=== PATIENT | female | born 1980 | race Caucasian/White ===

== ENCOUNTER 2016-08-18 15:03 | Emergency (ER) | payer SELFPAY ==
[2016-08-18 15:28] VITALS: BP 119/90
--- NOTE | 2016-08-18 17:56 | EDM.PDOC ---
ED HPI Trauma - General Chief Complaint: Lower Extremity Injury/Pain Stated Complaint: R FOOT INJURY Time Seen by Provider: 08/18/16 16:23 Source: Reports: Patient History Limitations: Reports: No limitations - History of Present Illness INITIAL COMMENTS - FREE TEXT/NARRATIVE: Patient is a 35-year-old female presents ED complaining of right foot pain. States approximately 3 days ago while taking the trash out she stepped on the curb wrong and felt a popping sensation to the lateral aspect of the foot. States she has continued to walk with gradual worsening pain over the past three days. States she has noticed mild swelling and bruising to the top of her foot. Has take ibuprofen and tylenol with minimal relief. She denies any pain to ankle/lower leg, or knee. Occurred When: other (3 days ago) Occurred Where: home Method of Injury: other Severity: moderate Pain/Injury Location: Reports: other ( right foot) Associated Symptoms: Reports: trouble walking (Right foot pain) Allergies/ADRs: Allergies No Known Allergies Allergy (Verified 08/18/16 15:28) Home Medications: Ambulatory Orders Acetaminophen/HYDROcodone [[place] 325-5 MG] 1 tab PO Q6H PRN #10 tablet 08/18/16 Past Medical History - Past Health History Medical/Surgical History: Denies Medical/Surgical History - Past Surgical History Female Surgical History: Reports: Hysterectomy, Salpingo-oophorectomy Social & Family History - Tobacco Use Smoking Status *Q: Current Every Day Smoker Years of Tobacco use: 15 Packs/Tins Daily: 0.1 Used Tobacco, but Quit: Yes Month Tobacco Last Used: February 2016 - Caffeine Use Caffeine Use: Reports: Coffee - Recreational Drug Use Recreational Drug Use: No - Living Situation & Occupation Living situation: Reports: , with family (4 kids) 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[employer]) Review of Systems - Review of Systems Review Of Systems: See Below Musculoskeletal: Reports: foot pain (Right), other (No ankle, lower leg, knee discomfort) Skin: Reports: other (Mild ecchymosis to the dorsal aspect right foot) Neurological: Reports: Difficulty Walking (Secondary right foot pain) Trauma Exam - Physical Exam Exam: See Below Exam Limited By: No limitations General Appearance: Reports: alert, WD/WN, no apparent distress Ears: Reports: hearing grossly normal Nose: Reports: normal inspection Throat/Mouth: Reports: No airway compromise Respiratory Exam: Reports: no respiratory distress, lungs clear, normal breath sounds, no accessory muscle use Cardiovascular: Reports: normal peripheral pulses, regular rate, rhythm Extremities: Reports: no evidence of injury, other (Pain noted to the lateral aspect of right foot with palpation. Pain also noted to the sole as well in this area. No pain noted to the medial or lateral malleolus. No pain noted with flexion extension of the ankle. Discomfort the lower leg/knee with palpation) Neurologic: Reports: no motor/sensory deficits, alert, normal mood/affect, oriented x 3 Skin: Reports: Warm/dry Course - Vital Signs Last Recorded V/S: Last Vital Signs Temp 98.5 F 08/18/16 15:23 Pulse 92 08/18/16 15:23 Resp 16 08/18/16 15:23 BP 119/90 08/18/16 15:23 Pulse Ox 100 08/18/16 15:23 - Orders/Labs/Meds Orders: Active Orders 24 hr Category Date Time Status Foot Comp Min 3V Rt [CR] Stat Exams 08/18/16 16:44 Taken DME for Discharge [COMM] Stat Oth 08/18/16 18:35 Ordered - Re-Assessments/Exams Free Text/Narrative Re-Assessment/Exam: X-ray of the right foot was ordered. X-ray of the right ankle was obtained on accident. No acute bony abnormalities noted. Reviewed by Dr. Burns. Will obtain x-ray of the right foot. 08/18/16 18:32 X-ray of the right foot revealed a displaced fracture to the lateral aspect of cuboid bone. Ordered walking boot applied with crutches. Will discharge patient home with instructions as documented. Departure - Departure Time of Disposition: 18:36 Disposition: Home, Self-Care 01 Condition: good Clinical Impression: Foot fracture, right Qualifiers: Encounter type: initial encounter Fracture type: closed Qualified Code(s): S92.901A - Unspecified fracture of right foot, initial encounter for closed fracture Prescriptions: Acetaminophen/HYDROcodone [[place] 325-5 MG] 1 tab PO Q6H PRN #10 tablet PRN Reason: Pain Instructions: Tarsal Fracture With Rehab-SportsMed, Pain Medicine Instructions , [id number] Referrals: PCP,None [Primary Care Provider] - Elijah Pereira MD [Physician] - Forms: ED Department Discharge Additional Instructions: X-ray of the right foot did reveal minimally displaced fracture. Thus will have you wear a walking boot and be nonweightbearing until evaluated by a orthopedic surgeon this coming week. Utilize crutches to ambulate. Elevate extremity when able to reduce swelling and pain. Take ibuprofen and Tylenol as needed in alternating fashion for pain. Ice 4-6 times daily, 20 minutes in duration, do not place ice directly on the skin. Return back to the ED if you develop any new or worsening symptoms. For severe pain take [place] one tab every 6 hours as needed. No driving while taking this. - My Orders Last 24 Hours: My Active Orders 08/18/16 16:44 Foot Comp Min 3V Rt [CR] Stat 08/18/16 18:35 DME for Discharge [COMM] Stat - Assessment/Plan Last 24 Hours: My Active Orders 08/18/16 16:44 Foot Comp Min 3V Rt [CR] Stat 08/18/16 18:35 DME for Discharge [COMM] Stat
--- NOTE | 2016-08-21 08:54 | CR ---
Right ankle: Four views of the right ankle were obtained. Comparison: No previous ankle study. Ankle mortise is symmetric. No fracture, dislocation or other bony abnormality is seen. Impression: 1. No abnormality is identified on four-view right ankle exam. Diagnostic code #1
--- NOTE | 2016-08-23 10:47 | CR ---
Right foot: Four views of the right foot were obtained. Comparison: No previous study. Note: This exam has only now been made available for interpretation. Joint spaces are preserved. No fracture, dislocation or other bony abnormality is seen. Impression: 1. No abnormality is identified on four-view right foot study. Impression: 1. No abnormality is identified on right foot study. Diagnostic code #1
== END 2016-08-18 18:50 | disposition home or self-care (01) ==
LOC: JD.ED 15:03
DX: S92.211A Displaced fracture of cuboid bone of right foot, initial encounter for closed fracture (principal); F17.210 Nicotine dependence, cigarettes, uncomplicated; Z90.710 Acquired absence of both cervix and uterus; X58.XXXA Exposure to other specified factors, initial encounter; Y92.009 Unspecified place in unspecified non-institutional (private) residence as the place of occurrence of the external cause
CPT/HCPCS: 73610-26-RT; 73610-RT; 73630-26-RT; 73630-RT; 99283

== ENCOUNTER 2016-08-20 17:19 | Emergency (ER) | payer SELFPAY ==
[2016-08-20 17:37] VITALS: BP 134/98
--- NOTE | 2016-08-20 18:14 | EDM.PDOC ---
ED HPI Trauma - General Chief Complaint: Lower Extremity Injury/Pain Stated Complaint: R FOOT INJURY/PAIN Time Seen by Provider: 08/20/16 17:31 Source: Reports: Patient, RN notes reviewed - History of Present Illness INITIAL COMMENTS - FREE TEXT/NARRATIVE: 35-year-old female comes in with concern of having run out of her pain pills. She injured her right foot 4 days ago. She's not exactly sure what happened but states she got it caught between a curb and garbage can or something of that nature. He had been twisting injury. She really is not sure. He states she works for the next day or 2. Because the pain and swelling was getting worse she did present to the ED 2 days ago, had x-rays which did reveal a fracture of the cuboid bone of her right foot. She was placed in a walking boot. She states the boot has been very uncomfortable. She has not been weightbearing with that. 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: - Past Surgical History Female Surgical History: Reports: Hysterectomy, Salpingo-oophorectomy Social & Family History - Tobacco Use Smoking Status *Q: Current Every Day Smoker Years of Tobacco use: 12 Packs/Tins Daily: 0.2 Used Tobacco, but Quit: Yes Month Tobacco Last Used: February 2016 - Caffeine Use Caffeine Use: Reports: Coffee - Recreational Drug Use Recreational Drug Use: No - Living Situation & Occupation Living situation: Reports: , with family (4 kids) 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[employer]) Review of Systems - Review of Systems Review Of Systems: See Below Respiratory: Denies: Shortness of Breath Cardiovascular: Denies: chest pain GI/Abdominal: Denies: Abdominal pain, Nausea, Vomiting Musculoskeletal: Reports: joint pain (Severe pain right foot) Skin: Reports: bruising (Right foot) Neurological: Denies: Numbness, Tingling Trauma Exam - Physical Exam Exam: See Below General Appearance: Reports: alert, moderate distress Head: Reports: atraumatic Throat/Mouth: Reports: Normal inspection Neck: Reports: full range of motion Respiratory Exam: Reports: no respiratory distress, lungs clear Cardiovascular: Reports: regular rate, rhythm Extremities: Reports: pain with movement, tenderness (Moderate diffuse tenderness right mid foot, no visible deformity) Neurologic: Reports: no motor/sensory deficits Skin: Reports: Ecchymosis (Moderate bruising medial and lateral aspect of right mid foot) ED TRAUMA EXTREMITY PROCEDURES - Splinting Lower Extremity Splint site: R foot and ankle, short leg posterior Pre-procedure NV status: normal Post-procedure NV status: normal Splint material: fiberglass Splint design: posterior Applied & form fitted by: provider Provider post-splint application NV check: NV status normal Complications: No Course - Vital Signs Last Recorded V/S: Last Vital Signs Temp 97.4 F 08/20/16 17:32 Pulse 98 08/20/16 17:32 Resp 15 08/20/16 17:32 BP 134/98 H 08/20/16 17:32 Pulse Ox 99 08/20/16 17:32 - Orders/Labs/Meds Meds: Medications Discontinued Medications Generic Name Dose Route Start Last Admin Trade Name Freq PRN Reason Stop Dose Admin Oxycodone/Acetaminophen 1 tab 08/20/16 18:24 08/20/16 18:28 Percocet 325-5 Mg PO 08/20/16 18:25 1 tab ONETIME ONE Administration - Re-Assessments/Exams Free Text/Narrative Re-Assessment/Exam: 08/20/16 18:28 Have given one Percocet by mouth for pain. I am not going to have her continue using the walking boot for now. At this point it is causing her a lot of discomfort and not giving her any help with regard to swelling. Will apply an Orthoglass splint. Discharge instructions as documented. Departure - Departure Time of Disposition: 18:14 Disposition: Home, Self-Care 01 Condition: fair Clinical Impression: Foot fracture, right Qualifiers: Encounter type: initial encounter Fracture type: closed Qualified Code(s): S92.901A - Unspecified fracture of right foot, initial encounter for closed fracture Instructions: Tarsal Fracture With Rehab-SportsMed Referrals: Elijah Pereira MD [Primary Care Provider] - Forms: ED Department Discharge Additional Instructions: Elevate foot and leg as much as possible as discussed, use crutches, Orthoglass splint, no weightbearing, hydrocodone as needed for severe pain, do not drive or work when taking hydrocodone, see Dr. Pereira, Orthopedist tomorrow as planned
[2016-08-20] MEDS ORDERED: Acetaminophen/oxyCODONE 325-5 MG Tab PO ONE (18:24)
== END 2016-08-20 19:03 | disposition home or self-care (01) ==
LOC: JD.ED 17:19 → SUPCPDRO 17:19 → JD.ED 19:03
DX: S92.901A Unspecified fracture of right foot, initial encounter for closed fracture (principal); X50.1XXA Overexertion from prolonged static or awkward postures, initial encounter
CPT/HCPCS: 29515; 99283; A9270

== ENCOUNTER 2016-09-12 18:21 | Emergency (ER) | payer MEDICAID, OTHER ==
[2016-09-12 18:36] VITALS: BP 151/108
--- NOTE | 2016-09-12 19:06 | EDM.PDOC ---
ED HPI GENERAL MEDICAL PROBLEM - General Chief Complaint: Lower Extremity Injury/Pain Stated Complaint: R FOOT INJURY Time Seen by Provider: 09/12/16 19:05 - History of Present Illness INITIAL COMMENTS - FREE TEXT/NARRATIVE: 36-year-old female presents emergency room with right foot pain. The patient was wearing a cast for a couple of midfoot fractures however Saturday of this week had a propane tank fall on her foot and. She developed some discomfort in her forefoot. She's also been some swelling in her thigh the most discomfort is in her foot and upper ankle. Patient attempted to get in to see Dr. Wood today however did not hear back. 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 History: Reports: - Past Surgical History Female Surgical History: Reports: Hysterectomy, Salpingo-oophorectomy Social & Family History - Tobacco Use Smoking Status *Q: Former Smoker Years of Tobacco use: 10 Packs/Tins Daily: 0.3 Used Tobacco, but Quit: No Month Tobacco Last Used: February 2016 - Caffeine Use Caffeine Use: Reports: Coffee - Recreational Drug Use Recreational Drug Use: No - Living Situation & Occupation Living situation: Reports: , with family (4 kids) 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[employer]) Review of Systems - Review of Systems Review Of Systems: See Below Constitutional: Reports: no symptoms Mouth/Throat: Reports: no symptoms Respiratory: Reports: No Symptoms Cardiovascular: Reports: no symptoms, palpitations Trauma Exam - Physical Exam Exam: See Below Exam Limited By: No limitations General Appearance: Reports: alert, no apparent distress, other (Respiratory rate observed to be 16 on my exam) Respiratory Exam: Reports: no respiratory distress, lungs clear, normal breath sounds Cardiovascular: Reports: regular rate, rhythm, no edema, no murmur Extremities: Other (Demisch of the right foot shows intact neurovascular status isn't discomfort in her toes abrasion over her great toe on the dorsal surface. Cast is in place medial portion of the cast starting to break down.) Course - Vital Signs Last Recorded V/S: Last Vital Signs Temp 36.5 C 09/12/16 18:31 Pulse 96 09/12/16 18:31 Resp BP 151/108 H 09/12/16 18:31 Pulse Ox 99 09/12/16 18:31 - Orders/Labs/Meds Orders: Active Orders 24 hr Category Date Time Status Ankle Min 3V Rt [CR] Stat Exams 09/12/16 19:17 Taken Foot Comp Min 3V Rt [CR] Stat Exams 09/12/16 19:14 Taken Labs: Laboratory Tests 09/12/16 Range/Units 19:27 D-Dimer, Quantitative 0.56 (0.19-0.59) mg/L - Re-Assessments/Exams Free Text/Narrative Re-Assessment/Exam: 09/12/16 19:22 We will x-ray her foot ankle with her leg swelling in the lower leg cast in place check a d-dimer. 09/12/16 20:30 X-rays are negative for acute fracture dislocation cast in place possible joint space irregularities involving the Lisfranc articulation. D-dimer normal Departure - Departure Time of Disposition: 20:31 Disposition: Home, Self-Care 01 Clinical Impression: Foot injury, Thigh pain - Discharge Information Referrals: PCP,None [Primary Care Provider] - Forms: ED Department Discharge Additional Instructions: Return to emergency room with any questions or problems. Followup with Dr. Pereira this week. Remain non weightbearing on this foot wear your postop boot over your cast. - My Orders Last 24 Hours: My Active Orders 09/12/16 19:14 Foot Comp Min 3V Rt [CR] Stat 09/12/16 19:17 Ankle Min 3V Rt [CR] Stat - Assessment/Plan Last 24 Hours: My Active Orders 09/12/16 19:14 Foot Comp Min 3V Rt [CR] Stat 09/12/16 19:17 Ankle Min 3V Rt [CR] Stat
--- NOTE | 2016-09-13 08:59 | CR ---
Right foot: Four views of the right foot were obtained. Comparison: Previous right foot exam of 08/18/16. Fiberglass cast is in place. Joint spaces are preserved. No discrete fracture identified through the cast. Impression: 1. Fiberglass cast in place. No abnormality is identified through the fiberglass cast. Diagnostic code #2
--- NOTE | 2016-09-13 08:59 | CR ---
Right ankle: Four views of the right ankle were obtained. Comparison: Previous study of 08/18/16. Ankle mortise is symmetric. Fiberglass cast is in place. No abnormality is identified through the cast. Impression: 1. Fiberglass cast is in place. No acute bony abnormality is identified through the cast. Diagnostic code #2
== END 2016-09-12 20:40 | disposition home or self-care (01) ==
LOC: JD.ED 18:21
DX: S90.411A Abrasion, right great toe, initial encounter (principal); M79.651 Pain in right thigh; W20.8XXA Other cause of strike by thrown, projected or falling object, initial encounter; Z90.710 Acquired absence of both cervix and uterus; Z87.891 Personal history of nicotine dependence
CPT/HCPCS: 36415; 73610-26-RT; 73610-RT; 73630-26-RT; 73630-RT; 85379; 99282; 99284

== ENCOUNTER 2017-02-13 09:17 | Emergency (ER) | payer MEDICAID ==
[2017-02-13 09:36] VITALS: BP 127/84
--- NOTE | 2017-02-13 10:04 | EDM.PDOC ---
ED HPI GENERAL MEDICAL PROBLEM - General Chief Complaint: Genitourinary Problem Stated Complaint: FEVER/BACK PAIN AND BLOOD IN URINE Time Seen by Provider: 02/13/17 10:04 Source of Information: Reports: Patient, Family History Limitations: Reports: No Limitations - History of Present Illness INITIAL COMMENTS - FREE TEXT/NARRATIVE: 36-year-old female presents to the hospital with a history of fever chills nausea vomiting and bilateral flank pain. She has appreciated intermittent hematuria for about a week. No follow-up or. No true dysuria. Patient is not prone to urinary tract infections and gives no history of renal lithiasis. Currently having severe pain right flank likely from ureter colic. This morning she started having nausea and vomiting she did try to eat some breakfast but it came back up. Has had very little to eat the last 3 days. Says she developed chills about 3 days ago. They are intermittent. Fever as high as 102.3 at home. Onset: Gradual Onset Date: 02/06/17 Duration: Day(s):, Getting Worse Location: Reports: Abdomen (Upper abdominal pain from nausea and vomiting.), Back (Bilateral flank pain worse on the right as compared to the left.) Quality: Reports: Ache, Sharp (In her right flank.), Stabbing Severity: Severe Improves with: Reports: None Worsens with: Reports: None Context: Denies: Activity, Exercise, Lifting, Sick Contact, Trauma, Other Associated Symptoms: Reports: Cough, cough w sputum (Cough productive of some yellowish phlegm.), Diaphoresis, Fever/Chills, Loss of Appetite, Malaise, Nausea /Vomiting (Yesterday and today.). Denies: No Other Symptoms, Confusion, Shortness of Breath Treatments HISTOLOGIST: Reports: Acetaminophen, NSAIDS Right Lower Back Pain Score (Numeric/FACES): 7 - Related Data Allergies Allergy/AdvReac Type Severity Reaction Status Date / Time promethazine [From Phenergan] AdvReac Hallucinati Verified 02/13/17 10:12 ons Home Meds: Home Meds Levofloxacin [Levaquin] 500 mg PO Q24H #9 tablet 02/13/17 [Rx] Ondansetron [Zofran ODT] 4 mg PO Q6H #8 tab.dis 02/13/17 [Rx] oxyCODONE HCl/Acetaminophen [Percocet 5-325 mg Tablet] 1 - 2 each PO Q4H PRN # 16 tablet 02/13/17 [Rx] Past Medical History - Past Health History Medical/Surgical History: Denies Medical/Surgical History 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: - Past Surgical History Female Surgical History: Reports: Hysterectomy, Salpingo-Oophorectomy Social & Family History - Tobacco Use Smoking Status *Q: Never Smoker Years of Tobacco use: 10 Packs/Tins Daily: 0.3 Used Tobacco, but Quit: No Month Tobacco Last Used: February 2016 Second Hand Smoke Exposure: No - Caffeine Use Caffeine Use: Reports: Coffee - Recreational Drug Use Recreational Drug Use: No - Living Situation & Occupation Living situation: Reports: , with Family Occupation: Employed ED ROS GENERAL - Review of Systems Review Of Systems: See Below Constitutional: Reports: Fever, Chills, Malaise, Weakness, Fatigue, Decreased Appetite, Weight Loss HEENT: Reports: No Symptoms Respiratory: Reports: Shortness of Breath, Cough (Occasional productive of yellowish sputum.). Denies: Wheezing, Pleuritic Chest Pain Cardiovascular: Reports: Lightheadedness. Denies: Chest Pain, Blood Pressure Problem, Claudication, Dyspnea on Exertion, Edema, Orthopnea, Palpitations Endocrine: Reports: Fatigue GI/Abdominal: Reports: Abdominal Pain (Upper abdominal pain epigastrium from vomiting.), Decreased Appetite, Nausea, Vomiting, Other. Denies: Constipation, Diarrhea : Reports: Frequency, Hematuria (Has noted hematuria off and on for the last week in her urine.) Musculoskeletal: Reports: Back Pain ( She has had previous total abdominal hysterectomy and BSO due to endometriosis.), Muscle Pain ( right flank worse than the left but she has generalized myalgia. ) Skin: Reports: No Symptoms ( generalized) Neurological: Reports: Dizziness, Headache, Difficulty Walking. Denies: Seizure Psychiatric: Reports: No Symptoms ED EXAM, GI/ABD - Physical Exam Exam: See Below Exam Limited By: No Limitations General Appearance: Alert, WD/WN, Moderate Distress (Appears acutely ill. Is febrile to touch.) Eyes: Bilateral: Normal Appearance Ears: Normal TMs Nose: Normal Inspection, Normal Mucosa, No Blood Throat/Mouth: Normal Inspection, Normal Lips, Normal Teeth, Normal Oropharynx Head: Atraumatic, Normocephalic Neck: Normal Inspection, Supple, Non-Tender, Full Range of Motion. No: Lymphadenopathy (L), Lymphadenopathy (R) Respiratory/Chest: No Respiratory Distress, Lungs Clear, Normal Breath Sounds, No Accessory Muscle Use Cardiovascular: Normal Peripheral Pulses, Regular Rate, Rhythm (Tachycardia at rest 10 6/m.), No Edema, No Gallop, No Murmur, No Rub, Tachycardia GI/Abdominal Exam: Normal Bowel Sounds, Soft, Non-Tender, No Organomegaly, Tender (In the epigastrium.) Back Exam: CVA Tenderness (L) (Marked mild), CVA Tenderness (R) Extremities: Normal Inspection, Normal Range of Motion, Non-Tender, No Pedal Edema Neurological: Alert, Oriented, CN II-XII Intact, Normal Cognition Psychiatric: Normal Affect, Normal Mood Skin Exam: Warm, Dry, Intact, Normal Color, No Rash Course - Vital Signs Last Recorded V/S: Last Vital Signs Temp 36.2 C 02/13/17 09:29 Pulse 101 H 02/13/17 09:29 Resp 15 02/13/17 09:29 BP 127/84 02/13/17 09:29 Pulse Ox 100 02/13/17 09:29 Orthostatic Blood Pressure [ 146/97 Standing] Orthostatic Blood Pressure [ 137/83 Sitting] Orthostatic Blood Pressure [ 127/84 Supine] - Orders/Labs/Meds Orders: Active Orders 24 hr Category Date Time Status Chest 1V Frontal [CR] Stat Exams 02/13/17 10:05 Taken CULTURE BLOOD [BC] Stat Lab 02/13/17 10:50 Received CULTURE BLOOD [BC] Stat Lab 02/13/17 10:58 Received CULTURE URINE [RM] Stat Lab 02/13/17 09:25 Received Dextrose 5%-0.9% NaCl [Dextrose 5%-Normal Saline] 1,000 Med 02/13/17 10:15 Active ml IV ASDIRECTED Ketorolac [Toradol] Med 02/13/17 10:15 Active 30 mg IVPUSH ONETIME Blood Culture x2 Reflex Set [OM.PC] Stat Oth 02/13/17 10:05 Ordered Medication Orders Dextrose/Sodium Chloride (Dextrose 5%-Normal Saline) 1,000 mls @ 999 mls/hr IV ASDIRECTED GENET Last Admin: 02/13/17 10:50 Dose: 999 mls/hr Ketorolac Tromethamine (Toradol) 30 mg IVPUSH ONETIME GENET Last Admin: 02/13/17 10:35 Dose: 30 mg Labs: Laboratory Tests 02/13/17 02/13/17 02/13/17 Range/Units 09:25 10:00 10:00 WBC 6.61 (3.98-10.04) K/mm3 RBC 3.88 L (3.98-5.22) M/mm3 Hgb 11.9 (11.2-15.7) gm/L Hct 35.4 (34.1-44.9) % MCV 91.2 (79.4-94.8) fl MCH 30.7 (25.6-32.2) pg MCHC 33.6 (32.2-35.5) g/dl RDW Std Deviation 42.6 (36.4-46.3) fL Plt Count 214 (182-369) K/mm3 MPV 11.0 (9.4-12.3) fl Neutrophils % (Manual) 63 H (40-60) % Band Neutrophils % 0 (0-10) % Lymphocytes % (Manual) 31 (20-40) % Atypical Lymphs % 0 % Monocytes % (Manual) 1 L (2-10) % Eosinophils % (Manual) 2 (0.7-5.8) % Basophils % (Manual) 3 H (0.1-1.2) Platelet Estimate Adequate Plt Morphology Comment Normal RBC Morph Comment Normal ESR 22 H (0-20) mm/hr Sodium (136-145) mEq/L Potassium (3.5-5.1) mEq/L Chloride (98-107) mEq/L Carbon Dioxide (21-32) mEq/L Anion Gap (5-15) BUN (7-18) mg/dL Creatinine (0.55-1.02) mg/dL Est Cr Clr Drug Dosing mL/min Estimated GFR (MDRD) (>60) mL/min BUN/Creatinine Ratio (14-18) Glucose (74-106) mg/dL Lactic Acid (0.4-2.0) mmol/L Calcium (8.5-10.1) mg/dL Total Bilirubin (0.2-1.0) mg/dL AST (15-37) U/L ALT (14-59) U/L Alkaline Phosphatase (46-116) U/L C-Reactive Protein (<1.0) mg/dL Total Protein (6.4-8.2) g/dl Albumin (3.4-5.0) g/dl Globulin gm/dL Albumin/Globulin Ratio (1-2) Urine Color Yellow (Yellow) Urine Appearance Clear (Clear) Urine pH 6.5 (5.0-8.0) Ur Specific [place] 1.025 (1.005-1.030) Urine Protein Trace H (Negative) Urine Glucose (UA) Negative (Negative) Urine Ketones Negative (Negative) Urine Occult Blood 2+ H (Negative) Urine Nitrite Negative (Negative) Urine Bilirubin Negative (Negative) Urine Urobilinogen 0.2 (0.2-1.0) Ur Leukocyte Esterase 1+ H (Negative) Urine RBC 5-10 H (0-5) /hpf Urine WBC 20-30 H (0-5) /hpf Ur Epithelial Cells 30-40 H (0-5) /hpf Urine Bacteria Many H (FEW) /hpf Urine Mucus Not seen (FEW) /hpf 02/13/17 02/13/17 Range/Units 10:00 10:50 WBC (3.98-10.04) K/mm3 RBC (3.98-5.22) M/mm3 Hgb (11.2-15.7) gm/L Hct (34.1-44.9) % MCV (79.4-94.8) fl MCH (25.6-32.2) pg MCHC (32.2-35.5) g/dl RDW Std Deviation (36.4-46.3) fL Plt Count (182-369) K/mm3 MPV (9.4-12.3) fl Neutrophils % (Manual) (40-60) % Band Neutrophils % (0-10) % Lymphocytes % (Manual) (20-40) % Atypical Lymphs % % Monocytes % (Manual) (2-10) % Eosinophils % (Manual) (0.7-5.8) % Basophils % (Manual) (0.1-1.2) Platelet Estimate Plt Morphology Comment RBC Morph Comment ESR (0-20) mm/hr Sodium 144 (136-145) mEq/L Potassium 3.8 (3.5-5.1) mEq/L Chloride 106 (98-107) mEq/L Carbon Dioxide 29 (21-32) mEq/L Anion Gap 12.8 (5-15) BUN 13 (7-18) mg/dL Creatinine 1.0 (0.55-1.02) mg/dL Est Cr Clr Drug Dosing 74.90 mL/min Estimated GFR (MDRD) > 60 (>60) mL/min BUN/Creatinine Ratio 13.0 L (14-18) Glucose 91 (74-106) mg/dL Lactic Acid 0.9 (0.4-2.0) mmol/L Calcium 9.5 (8.5-10.1) mg/dL Total Bilirubin 0.5 (0.2-1.0) mg/dL AST 14 L (15-37) U/L ALT 24 (14-59) U/L Alkaline Phosphatase 62 (46-116) U/L C-Reactive Protein < 0.2 (<1.0) mg/dL Total Protein 7.0 (6.4-8.2) g/dl Albumin 3.7 (3.4-5.0) g/dl Globulin 3.3 gm/dL Albumin/Globulin Ratio 1.1 (1-2) Urine Color (Yellow) Urine Appearance (Clear) Urine pH (5.0-8.0) Ur Specific [place] (1.005-1.030) Urine Protein (Negative) Urine Glucose (UA) (Negative) Urine Ketones (Negative) Urine Occult Blood (Negative) Urine Nitrite (Negative) Urine Bilirubin (Negative) Urine Urobilinogen (0.2-1.0) Ur Leukocyte Esterase (Negative) Urine RBC (0-5) /hpf Urine WBC (0-5) /hpf Ur Epithelial Cells (0-5) /hpf Urine Bacteria (FEW) /hpf Urine Mucus (FEW) /hpf Meds: Medications Generic Name Dose Route Start Last Admin Trade Name Freq PRN Reason Stop Dose Admin Dextrose/Sodium Chloride 1,000 mls @ 999 mls/hr 02/13/17 10:15 02/13/17 10:50 Dextrose 5%-Normal Saline IV 999 mls/hr ASDIRECTED GENET Administration Ketorolac Tromethamine 30 mg 02/13/17 10:15 02/13/17 10:35 Toradol IVPUSH 30 mg ONETIME GENET Administration Discontinued Medications Generic Name Dose Route Start Last Admin Trade Name Freq PRN Reason Stop Dose Admin Acetaminophen 975 mg 02/13/17 10:20 02/13/17 10:37 Tylenol PO 10/11/17 10:21 975 mg ONETIME ONE Administration Acetaminophen Confirm 02/13/17 10:27 02/13/17 12:30 Tylenol Administered 02/13/17 10:28 Not Given Dose 650 mg .ROUTE .STK-MED ONE Hydromorphone HCl 0.5 mg 02/13/17 10:07 02/13/17 10:37 Dilaudid IVPUSH 02/13/17 10:08 0.5 mg ONETIME ONE Administration Hydromorphone HCl 0.5 mg 02/13/17 12:09 02/13/17 12:16 Dilaudid IVPUSH 02/13/17 12:10 0.5 mg ONETIME ONE Administration Ceftriaxone Sodium 2 gm/ 100 mls @ 200 mls/hr 02/13/17 10:08 02/13/17 10:49 Sodium Chloride IV 02/13/17 10:37 200 mls/hr ONETIME ONE Administration Levofloxacin/Dextrose 500 mg/ 100 mls @ 100 mls/hr 02/13/17 11:32 02/13/17 12 :06 Premix IV 02/13/17 12:31 100 mls/hr ONETIME ONE Administration Metoclopramide HCl 7.5 mg 02/13/17 10:07 02/13/17 10:36 Reglan IVPUSH 02/13/17 10:08 7.5 mg ONETIME ONE Administration - Radiology Interpretation Free Text/Narrative:: 36-year-old female presents to the ED with a history of intermittent gross hematuria for the better part of a week. Urine was cloudy at times. No older identified. No true dysuria. She has had some frequency but no urgency. No history of renal lithiasis. At present has severe right flank pain. She is febrile with temperature 102.3 and she states has been going on for the week. Developed significant chills the last 2 days. Nausea and vomiting this morning. Also yesterday. Has had very little oral intake the last 2 days. Clinically she is febrile. She does have bilateral costovertebral angle tenderness right greater than the left. Suspect bilateral pilon pyelonephritis. Septic workup to be completed including lactic acid. We'll give her Toradol 30 mg IV with Dilaudid 0.5 mg IV and Reglan 7.5 mg IV for pain relief and nausea relief. Will give her Tylenol 975 mg orally 20 minutes after the Reglan is in. Will start Rocephin 2 g IV as soon as the blood cultures 2 been completed. - Re-Assessments/Exams Free Text/Narrative Re-Assessment/Exam: 02/13/17 11:14 portable chest x-ray reveals normal lung de la cruz and normal cardiac silhouette. White count is 6.61 with differential pending. Hemoglobin slightly low 11.9. Hematocrit is 35.4 platelets 214,000. Chemistry shows sodium of 144 potassium 3.8 chloride 106 bicarbonate 29. Anion gap is 12.8. Creatinine is 1.0 glucose is 91. CRP is pending. Urinalysis shows 2+ blood on the dip and 5 -10 RBCs per high-power field. Leukocyte Estrace is 1+ positive with 20-30 WBCs per high-power field and many bacteria appreciated. There is also 30-40 epithelial cells again suggesting upper urinary tract infection. Urine culture has been ordered. 02/13/17 11:30 Patient has no further nausea vomiting and is been able to sip on some water. Blood pressure remains low at 105 /71. 02/13/17 12:00 the C-reactive protein is pending. Differential is available on the white count is 63% neutrophils with no bands. It therefore appears that she will likely be able to go home as we rehydrate her and she's had double antibiotic therapy for pyelonephritis. Discharge on Levaquin 500 mg once daily 9 days then 02/13/17 12:10 having more back pain at present. Will give Dilaudid 0.5 mg IV. The Levaquin has just been hung. Therefore she'll be here for another hour or so. 02/13/17 13:07 is feeling better. Her Levaquin is just about done and therefore she will be discharged to home. Clear fluids. Motrin 600 mg every 6 hours as necessary for fever and inflammation. Percocet 5/325 one or 2 every 4- 6 hours for pain relief. Departure - Departure Time of Disposition: 13:20 Disposition: Home, Self-Care 01 Condition: Fair Clinical Impression: Pyelonephritis - Discharge Information Prescriptions: Levofloxacin [Levaquin] 500 mg PO Q24H #9 tablet Ondansetron [Zofran ODT] 4 mg PO Q6H #8 tab.dis oxyCODONE HCl/Acetaminophen [Percocet 5-325 mg Tablet] 1 - 2 each PO Q4H PRN # 16 tablet PRN Reason: pain relief. Referrals: PCP,None [Primary Care Provider] - Forms: ED Department Discharge, ED Return to Work/School Form Additional Instructions: Evaluation the emergency room today in regards to develop an of fever chills nausea vomiting and noted blood in the urine with urinary frequency. Diffuse back pain with pain localized to the costovertebral angles bilaterally worse on the right as compared to the left. The lab work supports a urinary tract infection which is involving the kidneys which we call pyelonephritis. You're therefore treated with IV antibiotic Rocephin 2 g followed by Levaquin 500 mg IV. Fluids were given and medications Toradol 30 mg Dilaudid 0.5 mg and Reglan 7.5 mg to relieve nausea vomiting and pain. The antibodies will work right quickly over the next 24-48 hours to settle down back pain and he infective process. He will need to take an oral antibiotic 500 mg of Levaquin once daily for another 9 days with the next tablet due tomorrow morning. Continue Motrin 600 mg every 6 hours as necessary for fever or pain and inflammation relief. Percocet tabs 09/05/24 one or 24-6 hours for pain relief in your back until it settles down over the next 1-3 days. Zofran 4 mg may be taken under the tongue every 4-6 hours as necessary for nausea or vomiting relief. Try and drink plenty of fluids such as Gatorade ,Powerade etc. Resume diet as able. - My Orders Last 24 Hours: My Active Orders 02/13/17 09:25 CULTURE URINE [RM] Stat 02/13/17 10:05 Chest 1V Frontal [CR] Stat Blood Culture x2 Reflex Set [OM.PC] Stat 02/13/17 10:15 Dextrose 5%-0.9% NaCl [Dextrose 5%-Normal Saline] 1,000 ml IV ASDIRECTED Ketorolac [Toradol] 30 mg IVPUSH ONETIME 02/13/17 10:50 CULTURE BLOOD [BC] Stat 02/13/17 10:58 CULTURE BLOOD [BC] Stat - Assessment/Plan Last 24 Hours: My Active Orders 02/13/17 09:25 CULTURE URINE [RM] Stat 02/13/17 10:05 Chest 1V Frontal [CR] Stat Blood Culture x2 Reflex Set [OM.PC] Stat 02/13/17 10:15 Dextrose 5%-0.9% NaCl [Dextrose 5%-Normal Saline] 1,000 ml IV ASDIRECTED Ketorolac [Toradol] 30 mg IVPUSH ONETIME 02/13/17 10:50 CULTURE BLOOD [BC] Stat 02/13/17 10:58 CULTURE BLOOD [BC] Stat
[2017-02-13] MEDS ORDERED: HYDROmorphone 0.5 MG/0.5 ML Syringe IVPUSH ONE ×2 (10:07→12:09)
[2017-02-13] MEDS ORDERED: Metoclopramide 10 MG/2 ML SDV IVPUSH ONE (10:07)
[2017-02-13] MEDS ORDERED: cefTRIAXone 2 GM in Sodium Chloride 0.9% 100 ML IV ONE (10:08)
[2017-02-13] MEDS ORDERED: Ketorolac 30 MG/ML SDV IVPUSH SCH (10:15)
[2017-02-13] MEDS ORDERED: Dextrose 5%-0.9% NaCl 1,000 ML IV SCH (10:15)
[2017-02-13] MEDS ORDERED: Acetaminophen 325 MG Tab PO ONE (10:20)
[2017-02-13] MEDS ORDERED: Acetaminophen 325 MG Tab ONE (10:27)
[2017-02-13] MEDS ORDERED: Levofloxacin/Dextrose 5%-Water 500 MG in Premix Bag 1 BAG IV ONE (11:32)
--- NOTE | 2017-02-13 15:44 | CR ---
Chest: Portable view of the chest was obtained. Comparison: Previous chest x-ray of 05/26/16. Heart size and mediastinum are normal. Lungs are clear. Bony structures are grossly intact. Impression: 1. Nothing acute is identified on portable chest x-ray. Diagnostic code #1
== END 2017-02-13 14:15 | disposition home or self-care (01) ==
LOC: JD.ED 09:17
DX: N12 Tubulo-interstitial nephritis, not specified as acute or chronic (principal)
CPT/HCPCS: 36415; 71010; 80053; 81001; 83605; 85025; 85652; 86140; 87040; 87086; 96361; 96365; 96367; 96375; 96376; 99284; A9270; J0696; J1170; J1885; J1956; J2765; J7030; J7042

== ENCOUNTER 2017-02-16 16:03 | Emergency (ER) | payer MEDICAID ==
[2017-02-16 16:14] VITALS: BP 133/95
[2017-02-16] MEDS ORDERED: Ondansetron 4 MG/2 ML SDV IVPUSH ONE (16:35)
[2017-02-16] MEDS ORDERED: Ketorolac 30 MG/ML SDV IVPUSH ONE (16:35)
[2017-02-16] MEDS ORDERED: Sodium Chloride 0.9% 1,000 ML IV ONE (16:35)
[2017-02-16] MEDS ORDERED: Sodium Chloride 0.9% 10 ML Syringe FLUSH PRN (16:35)
--- NOTE | 2017-02-16 16:37 | EDM.PDOC ---
ED HPI GENERAL MEDICAL PROBLEM - General Chief Complaint: Genitourinary Problem Stated Complaint: Flank pain Time Seen by Provider: 02/16/17 16:10 Source of Information: Reports: Patient, Old Records, RN Notes Reviewed History Limitations: Reports: No Limitations - History of Present Illness INITIAL COMMENTS - FREE TEXT/NARRATIVE: 36 year old female presents to the ED with complaints of fever as high as 103, chills, sweats, bilateral flank pain, abdominal pain, nausea, and vomiting. She was initally evaluated in the ED on Saturday of this past week and was diagnosed with pyelonephritis. She was started on levaquin and discharged home. She reports no improvement since her last visit. She continues to have fever, flank pain, nausea and vomiting. She says she has had daily bowel movements and no diarrhea. She did not have a CT scan when she was here on Saturday. She is otherwise healthy. She's had a hystorectomy. She still has her gallbladder and appendix. 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: - Past Surgical History Female Surgical History: Reports: Hysterectomy, Salpingo-Oophorectomy Social & Family History - Tobacco Use Smoking Status *Q: Former Smoker Years of Tobacco use: 10 Packs/Tins Daily: 0.3 Used Tobacco, but Quit: Yes Month Tobacco Last Used: jan 2017 Second Hand Smoke Exposure: No - Caffeine Use Caffeine Use: Reports: Coffee - Recreational Drug Use Recreational Drug Use: No - Living Situation & Occupation Living situation: Reports: , with Family Occupation: Employed ED ROS GENERAL - Review of Systems Review Of Systems: See Below Constitutional: Reports: Fever, Chills, Malaise, Fatigue Respiratory: Reports: No Symptoms. Denies: Shortness of Breath, Cough Cardiovascular: Reports: No Symptoms. Denies: Chest Pain, Edema GI/Abdominal: Reports: No Symptoms, Abdominal Pain, Distension, Nausea, Vomiting. Denies: Constipation, Diarrhea : Reports: Flank Pain. Denies: Dysuria, Frequency, Hematuria, Urgency ED EXAM, GI/ABD - Physical Exam Exam: See Below Exam Limited By: No Limitations General Appearance: Alert, WD/WN, Anxious, Mild Distress Respiratory/Chest: No Respiratory Distress, Lungs Clear, Normal Breath Sounds Cardiovascular: Normal Peripheral Pulses, No Murmur, Tachycardia GI/Abdominal Exam: Normal Bowel Sounds, Soft, No Distention, Tender (epigastric region ). No: Guarding, Rigid, Rebound Back Exam: Normal Inspection, Full Range of Motion, CVA Tenderness (L), CVA Tenderness (R) Neurological: Alert, Oriented, Normal Cognition Skin Exam: Warm, Dry, Intact Course - Vital Signs Last Recorded V/S: Last Vital Signs Temp 98.9 F 02/16/17 16:12 Pulse 108 H 02/16/17 16:12 Resp 16 02/16/17 16:12 BP 133/95 H 02/16/17 16:12 Pulse Ox 100 02/16/17 16:12 - Orders/Labs/Meds Orders: Active Orders 24 hr Category Date Time Status Peripheral IV Care [RC] . DIRECTED Care 02/16/17 16:35 Active Gallbladder [Abdomen Ltd] [US] Stat Exams 02/16/17 18:40 Ordered Sodium Chloride 0.9% [Saline Flush] Med 02/16/17 16:35 Active 10 ml FLUSH ASDIRECTED PRN Peripheral IV Insertion Adult [OM.PC] Stat Oth 02/16/17 16:34 Ordered Medication Orders Sodium Chloride (Saline Flush) 10 ml FLUSH ASDIRECTED PRN PRN Reason: Keep Vein Open Last Admin: 02/16/17 16:53 Dose: 10 ml Labs: Laboratory Tests 02/16/17 02/16/17 02/16/17 Range/Units 16:40 16:40 17:00 WBC 6.88 (3.98-10.04) K/mm3 RBC 4.08 (3.98-5.22) M/mm3 Hgb 12.5 (11.2-15.7) gm/L Hct 37.4 (34.1-44.9) % MCV 91.7 (79.4-94.8) fl MCH 30.6 (25.6-32.2) pg MCHC 33.4 (32.2-35.5) g/dl RDW Std Deviation 43.4 (36.4-46.3) fL Plt Count 249 (182-369) K/mm3 MPV 10.9 (9.4-12.3) fl Neutrophils % (Manual) 66 H (40-60) % Band Neutrophils % 1 (0-10) % Lymphocytes % (Manual) 27 (20-40) % Atypical Lymphs % 0 % Monocytes % (Manual) 2 (2-10) % Eosinophils % (Manual) 4 (0.7-5.8) % Basophils % (Manual) 0 L (0.1-1.2) Platelet Estimate Adequate Plt Morphology Comment Normal RBC Morph Comment Normal Sodium 141 (136-145) mEq/L Potassium 4.2 (3.5-5.1) mEq/L Chloride 104 (98-107) mEq/L Carbon Dioxide 28 (21-32) mEq/L Anion Gap 13.2 (5-15) BUN 13 (7-18) mg/dL Creatinine 1.0 (0.55-1.02) mg/dL Est Cr Clr Drug Dosing 74.90 mL/min Estimated GFR (MDRD) > 60 (>60) mL/min BUN/Creatinine Ratio 13.0 L (14-18) Glucose 110 H (74-106) mg/dL Calcium 10.3 H (8.5-10.1) mg/dL Total Bilirubin 0.2 (0.2-1.0) mg/dL AST 46 H (15-37) U/L ALT 52 (14-59) U/L Alkaline Phosphatase 99 (46-116) U/L C-Reactive Protein 1.5 H* (<1.0) mg/dL Total Protein 7.8 (6.4-8.2) g/dl Albumin 4.0 (3.4-5.0) g/dl Globulin 3.8 gm/dL Albumin/Globulin Ratio 1.1 (1-2) Lipase 83 (73-393) U/L Urine Color Yellow (Yellow) Urine Appearance Clear (Clear) Urine pH 7.5 (5.0-8.0) Ur Specific [place] 1.020 (1.005-1.030) Urine Protein Negative (Negative) Urine Glucose (UA) Negative (Negative) Urine Ketones Negative (Negative) Urine Occult Blood 1+ H (Negative) Urine Nitrite Negative (Negative) Urine Bilirubin Negative (Negative) Urine Urobilinogen 0.2 (0.2-1.0) Ur Leukocyte Esterase 1+ H (Negative) Urine RBC 5-10 H (0-5) /hpf Urine WBC 20-30 H (0-5) /hpf Ur Epithelial Cells 50-75 H (0-5) /hpf Urine Bacteria Few (FEW) /hpf Urine Mucus Not seen (FEW) /hpf Meds: Medications Generic Name Dose Route Start Last Admin Trade Name Freq PRN Reason Stop Dose Admin Sodium Chloride 10 ml 02/16/17 16:35 02/16/17 16:53 Saline Flush FLUSH 10 ml ASDIRECTED PRN Administration Keep Vein Open Discontinued Medications Generic Name Dose Route Start Last Admin Trade Name Freq PRN Reason Stop Dose Admin Dicyclomine HCl 10 mg 02/16/17 18:40 02/16/17 19:13 Bentyl PO 02/16/17 18:41 Not Given ONETIME ONE Hydromorphone HCl 0.5 mg 02/16/17 17:35 02/16/17 17:42 Dilaudid IVPUSH 02/16/17 17:36 0.5 mg ONETIME ONE Administration Hydromorphone HCl 0.5 mg 02/16/17 18:40 02/16/17 19:13 Dilaudid IVPUSH 02/16/17 18:41 Not Given ONETIME ONE Sodium Chloride 1,000 mls @ 999 mls/hr 02/16/17 16:35 02/16/17 16:54 Normal Saline IV 02/16/17 17:35 999 mls/hr ONETIME ONE Administration Ketorolac Tromethamine 30 mg 02/16/17 16:35 02/16/17 16:52 Toradol IVPUSH 02/16/17 16:36 30 mg ONETIME ONE Administration Magnesium Citrate 150 ml 02/16/17 18:40 02/16/17 19:13 Citrate Of Magnesia PO 02/16/17 18:41 Not Given ONETIME ONE Ondansetron HCl 4 mg 02/16/17 16:35 02/16/17 16:51 Zofran IVPUSH 02/16/17 16:36 4 mg ONETIME ONE Administration - Re-Assessments/Exams Free Text/Narrative Re-Assessment/Exam: CBC is normal. CRP is mildly elevated at 1.5. CMP is normal except for mildly elevated AST. Lipase is normal at 83. UA reveals 1+ leukocytes, 20-30 WBCs, and epithileal cells. Nitrites are negative. Will send for repeat culture. Her last urine culture revealed mixed mckinley suggestive of contamination. Blood cultures were also negative. Lactic acid was also normal. Initial treatment included Toradol, Zofran and IV fluids. CT of abdomen/pelvis was obtained and read by Dr. flowers, impression: 1. Mild increased stool throughout the colon 2. no renal calculi, ureteral dilatation, or ureteral stone is seen 3. no additional abnormality The patient continued to complain of severe pain. I ordered Dilaudid IV. Due to her increase in AST and epigastric pain, I ordered a gallbladder ultrasound. Plan was to obtain US and then proceed with soaps suds enemas for constipation. At 1900 nursing staff reported to me that the patient received a phone call that her child/children were involved in a motor vehicle accident. She promptly signed out AMA and left the ED. She left before I was able to speak with the patient. Nursing staff said they did go over outpatient constipation treatment prior to her discharge. Patient was encouraged to return if symptoms do not improve. Departure - Departure Time of Disposition: 19:00 Disposition: Against Medical Advice 07 Condition: Good Clinical Impression: Constipation Qualifiers: Constipation type: unspecified constipation type Qualified Code(s): K59.00 - Constipation, unspecified - Discharge Information Referrals: PCP,None [Primary Care Provider] - Forms: ED Department Discharge - My Orders Last 24 Hours: My Active Orders 02/16/17 16:34 Peripheral IV Insertion Adult [OM.PC] Stat 02/16/17 16:35 Peripheral IV Care [RC] . DIRECTED Sodium Chloride 0.9% [Saline Flush] 10 ml FLUSH ASDIRECTED PRN 02/16/17 18:40 Gallbladder [Abdomen Ltd] [US] Stat - Assessment/Plan Last 24 Hours: My Active Orders 02/16/17 16:34 Peripheral IV Insertion Adult [OM.PC] Stat 02/16/17 16:35 Peripheral IV Care [RC] . DIRECTED Sodium Chloride 0.9% [Saline Flush] 10 ml FLUSH ASDIRECTED PRN 02/16/17 18:40 Gallbladder [Abdomen Ltd] [US] Stat
[2017-02-16] MEDS ORDERED: HYDROmorphone 0.5 MG/0.5 ML Syringe IVPUSH ONE ×2 (17:35→18:40)
--- NOTE | 2017-02-16 17:41 | CT ---
CT abdomen and pelvis Technique: Multiple axial sections were obtained from above the dome of the diaphragm inferiorly to the pubic symphysis. Intravenous and oral contrast not utilized. Study has been performed as a ureteral stone protocol. Comparison: No previous abdominal imaging is available. Findings: Kidneys show no abnormal calcifications. No ureteral dilatation or ureteral stone is seen. Visualized lung bases are clear. Noncontrast appearance of the liver and spleen appears within normal limits. Adrenal glands show no nodule. Pancreas has a normal noncontrast appearance. Aorta shows no aneurysmal dilatation. No retroperitoneal adenopathy is seen. Appendix is seen which appears normal. No pelvic mass or adenopathy is seen. No free fluid or inflammatory change is seen. Mild increased stool is identified throughout the colon. Bone window settings were reviewed which appears within normal limits for the patient's age. Impression: 1. Mild increased stool throughout the colon. 2. No renal calculi, ureteral dilatation or ureteral stone is seen. 3. No additional abnormality is appreciated on noncontrast CT study of the abdomen and pelvis performed as a ureteral stone protocol. Diagnostic code #2
[2017-02-16] MEDS ORDERED: Magnesium Citrate Solution 296 ML Bottle PO ONE (18:40)
[2017-02-16] MEDS ORDERED: Dicyclomine 10 MG Cap PO ONE (18:40)
== END 2017-02-16 19:00 | disposition left against medical advice (07) ==
LOC: JD.ED 16:03
DX: K59.00 Constipation, unspecified (principal); Z88.8 Allergy status to other drugs, medicaments and biological substances; Z87.891 Personal history of nicotine dependence
CPT/HCPCS: 36415; 74176; 80053; 81001; 83690; 85025; 86140; 87086; 96361; 96374; 96375; 99284; J1170; J1885; J2405; J7040; J7050

== ENCOUNTER 2017-06-25 11:08 | Emergency (ER) | payer SELFPAY ==
--- NOTE | 2017-06-25 11:19 | EDM.PDOC ---
ED HPI GENERAL MEDICAL PROBLEM - General Chief Complaint: General Stated Complaint: FEVER, SORE THROAT, COUGH Time Seen by Provider: 06/25/17 11:19 - History of Present Illness INITIAL COMMENTS - FREE TEXT/NARRATIVE: 36-year-old female presents emergency room with worsening cough congestion and sore throat. Patient has had 3-4 day history of worsening cough this cough started out dry nonproductive mostly irritating however she gets some phlegm this was aggravated after she has some reflux like symptoms. Patient has had some chills early on but this is resolved no significant fevers. She does not feel nauseated but has some cough triggered reflux. She has a sore throat. She has minimal nasal drainage and discharge. She has developed significant discomfort in her throat and in her chest secondary to coughing. Throat Pain Score (Numeric/FACES): 7 Generalized Pain Score (Numeric/FACES): 4 - Related Data Allergies Allergy/AdvReac Type Severity Reaction Status Date / Time promethazine [From Phenergan] AdvReac Hallucinati Verified 06/25/17 11:18 ons Home Meds: Home Meds Levofloxacin [Levaquin] 500 mg PO Q24H #9 tablet 02/13/17 [Rx] Ondansetron [Zofran ODT] 4 mg PO Q6H #8 tab.dis 02/13/17 [Rx] oxyCODONE HCl/Acetaminophen [Percocet 5-325 mg Tablet] 1 - 2 each PO Q4H PRN # 16 tablet 02/13/17 [Rx] Acetaminophen/HYDROcodone [[place] 325-5 MG] 1 tab PO Q6H #10 tablet 06/25/17 [Rx] Albuterol [IMW: Ventolin HFA] 2 puff INH Q4H #18 gm 06/25/17 [Rx] Past Medical History - Past Health History Medical/Surgical History: Denies 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: - Past Surgical History Female Surgical History: Reports: Hysterectomy, Salpingo-Oophorectomy Social & Family History - Tobacco Use Smoking Status *Q: Former Smoker Years of Tobacco use: 10 Packs/Tins Daily: 0.3 Used Tobacco, but Quit: Yes Month Tobacco Last Used: jan 2017 Second Hand Smoke Exposure: No - Caffeine Use Caffeine Use: Reports: Coffee - Recreational Drug Use Recreational Drug Use: No - Living Situation & Occupation Living situation: Reports: , with Family Occupation: Employed ED ROS GENERAL - Review of Systems Review Of Systems: See Below Constitutional: Reports: No Symptoms HEENT: Reports: Rhinitis. Denies: Ear Pain, Vertigo, Vision Change Respiratory: Reports: Pleuritic Chest Pain, Cough, Sputum. Denies: Hemoptysis Cardiovascular: Reports: No Symptoms GI/Abdominal: Reports: Other (She has some mild epigastric discomfort). Denies : Nausea : Reports: No Symptoms Neurological: Reports: No Symptoms Psychiatric: Reports: No Symptoms ED EXAM, GENERAL - Physical Exam Exam: See Below Exam Limited By: No Limitations General Appearance: Alert, No Apparent Distress, Other (She does have frequent cough) Ears: Normal External Exam, Normal Canal, Other (He has some pressure behind her left tympanic membrane right is normal) Nose: Normal Inspection, Clear Rhinorrhea Throat/Mouth: Other (Mild pharyngeal erythema no exudate noted) Head: Atraumatic, Normocephalic Neck: Normal Inspection, Supple, Non-Tender, Full Range of Motion. No: Lymphadenopathy (L), Lymphadenopathy (R) Respiratory/Chest: No Respiratory Distress, Lungs Clear, Normal Breath Sounds, Other (Frequent cough aggravated by deep breathing) Cardiovascular: Regular Rate, Rhythm, No Edema, No Murmur GI/Abdominal: Normal Bowel Sounds, Soft, Other (Minimal discomfort upper abdominal musculature and epigastric area) Back Exam: Normal Inspection. No: CVA Tenderness (L), CVA Tenderness (R) Course - Vital Signs Last Recorded V/S: Last Vital Signs Temp 36.7 C 06/25/17 11:18 Pulse 88 06/25/17 11:18 Resp 18 06/25/17 11:18 BP 128/75 06/25/17 11:18 Pulse Ox 99 06/25/17 13:03 - Orders/Labs/Meds Orders: Active Orders 24 hr Category Date Time Status RT Aerosol Therapy [RC] ASDIRECTED Care 06/25/17 12:38 Active CULTURE STREP A CONFIRMATION [] Stat Lab 06/25/17 12:45 Results STREP SCRN A RAPID W CULT CONF [] Stat Lab 06/25/17 12:45 Results Meds: Medications Discontinued Medications Generic Name Dose Route Start Last Admin Trade Name Freq PRN Reason Stop Dose Admin Albuterol/Ipratropium 3 ml 06/25/17 12:37 06/25/17 13:03 Duoneb 3.0-0.5 Mg/3 Ml NEB 06/25/17 12:38 3 ml ONETIME ONE Administration - Re-Assessments/Exams Free Text/Narrative Re-Assessment/Exam: 06/25/17 15:07 Chest x-ray is negative rapid strep negative confirmatory culture pending. I believe this patient probably has influenza did not test for this as she is well beyond the 48 hour window for treatment and with a high rate of false negatives don't have much confidence in the test anyway and will have no bearing on treatment. The patient had some improvement with a DuoNeb treatment here she'll be started on albuterol MDI 2 puffs every 4 hours while awake. Because of the discomfort and the cough be started on hydrocodone 1/2-1 every 6 hours mostly to help her at night. The patient's cough is aggravated a little bit of reflux she'll start famotidine 20 mg twice a day. Departure - Departure Time of Disposition: 15:07 Disposition: Home, Self-Care 01 Clinical Impression: Bronchitis, Viral illness, Reflux pharyngitis - Discharge Information Prescriptions: Acetaminophen/HYDROcodone [[place] 325-5 MG] 1 tab PO Q6H #10 tablet Albuterol [IMW: Ventolin HFA] 2 puff INH Q4H #18 gm Referrals: Mabel Mendoza MD [Primary Care Provider] - Forms: ED Department Discharge, ED Return to Work/School Form Additional Instructions: Return to the emergency room with any questions problems worsening symptoms. Follow-up with your regular physician, Dr. Mendoza in 2 days. You had been started on albuterol inhaler used 2 puffs every 4 hours while awake. You have one refill on this. You have been given a few [place] take 1/2-1 every 6 hours to help with cough and discomfort use mostly at night so you can get some rest. Use famotidine, this is the generic for Pepcid, one twice daily until doing better. This will help here reflux like symptoms and a burning sensation in your throat - My Orders Last 24 Hours: My Active Orders 06/25/17 12:38 RT Aerosol Therapy [RC] ASDIRECTED 06/25/17 12:45 CULTURE STREP A CONFIRMATION [RM] Stat STREP SCRN A RAPID W CULT CONF [RM] Stat - Assessment/Plan Last 24 Hours: My Active Orders 06/25/17 12:38 RT Aerosol Therapy [RC] ASDIRECTED 06/25/17 12:45 CULTURE STREP A CONFIRMATION [RM] Stat STREP SCRN A RAPID W CULT CONF [RM] Stat
[2017-06-25 11:22] VITALS: BP 128/75
[2017-06-25] MEDS ORDERED: Albuterol/Ipratropium 3.0-0.5 MG/3 ML Neb Soln NEB ONE (12:37)
--- NOTE | 2017-06-25 14:51 | CR ---
Chest: Two views of the chest were obtained. Comparison: Prior chest x-ray of 02/13/17. Heart size and mediastinum are normal. Lungs are clear. Bony structures are unremarkable. Impression: 1. Nothing acute is identified on two-view chest x-ray. Diagnostic code #1
== END 2017-06-25 15:35 | disposition home or self-care (01) ==
LOC: JD.ED 11:08
DX: J40 Bronchitis, not specified as acute or chronic (principal); B34.9 Viral infection, unspecified; J02.9 Acute pharyngitis, unspecified; Z87.891 Personal history of nicotine dependence; Z88.8 Allergy status to other drugs, medicaments and biological substances
CPT/HCPCS: 71046; 71046-26; 87081; 87430; 94640; 99283; 99284-25

== ENCOUNTER 2017-08-16 17:16 | Emergency (ER) | payer SELFPAY ==
[2017-08-16 17:24] VITALS: BP 137/83
--- NOTE | 2017-08-16 17:25 | EDM.PDOC ---
ED HPI GENERAL MEDICAL PROBLEM - General Chief Complaint: Allergic Reaction Stated Complaint: REACTION TO SOMETHING Time Seen by Provider: 08/16/17 17:23 Source of Information: Reports: Patient History Limitations: Reports: No Limitations - History of Present Illness INITIAL COMMENTS - FREE TEXT/NARRATIVE: The patient presents wit a possible allergic reaction. She has been taking lots of motrin and tylenol for left lower molar pain and swelling. Her left lower jaw was swollen this morning. With hot packs and medicine it went away. She developed swelling in her mouth and some redness to her face and neck. This started a few hours ago. She took benadyrl and it is better. She does not have fever or chills. Onset: Gradual Duration: Hour(s): Location: Reports: Face Severity: Moderate Improves with: Reports: None Worsens with: Reports: None Associated Symptoms: Reports: Rash (Face and neck). 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: - Past Surgical History Female Surgical History: Reports: Hysterectomy, Salpingo-Oophorectomy Social & Family History - Tobacco Use Smoking Status *Q: Former Smoker Years of Tobacco use: 10 Packs/Tins Daily: 0.3 Used Tobacco, but Quit: Yes Month/Year Tobacco Last Used: jan 2017 Second Hand Smoke Exposure: No - Caffeine Use Caffeine Use: Reports: Coffee - Recreational Drug Use Recreational Drug Use: No - Living Situation & Occupation Living situation: Reports: , with Family Occupation: Employed ED ROS ALLERGIC REACTION - Review of Systems Review Of Systems: See Below Constitutional: Reports: No Symptoms HEENT: Reports: Dental Pain Respiratory: Reports: No Symptoms Cardiovascular: Reports: No Symptoms Endocrine: Reports: No Symptoms GI/Abdominal: Reports: No Symptoms : Reports: No Symptoms Musculoskeletal: Reports: No Symptoms Skin: Reports: Rash ED EXAM GENERAL NO PERIP PULSE - Physical Exam Exam: See Below Exam Limited By: No Limitations General Appearance: Alert, No Apparent Distress Ears: Normal External Exam Nose: Normal Inspection Throat/Mouth: Other (No edema she does have a fractured left lower 1st molar. There is ertyhema and some edema around that area.) Head: Atraumatic, Normocephalic Neck: Normal Inspection, Supple, Non-Tender Respiratory/Chest: No Respiratory Distress, Lungs Clear, Normal Breath Sounds Cardiovascular: Regular Rate, Rhythm, No Edema, No Murmur GI/Abdominal: Soft, Non-Tender, No Organomegaly, No Mass Back Exam: Normal Inspection Extremities: Normal Inspection Neurological: Alert, Oriented, No Motor/Sensory Deficits Course - Vital Signs Last Recorded V/S: Last Vital Signs Temp 97.7 F 08/16/17 17:20 Pulse 98 08/16/17 17:20 Resp 18 08/16/17 17:20 BP 137/83 08/16/17 17:20 Pulse Ox 96 08/16/17 17:20 - Re-Assessments/Exams Free Text/Narrative Re-Assessment/Exam: 08/16/17 17:36 My nurses put in an IV right away because of the oral swelling and rash but by the time I got in to see her, the swelling was gone and she felt better. She did not want any meds at that time. I will get her on some antibiotics and something for pain. Departure - Departure Time of Disposition: 17:40 Disposition: Home, Self-Care 01 Condition: Good Clinical Impression: Pain, dental, Dental abscess Allergic reaction Qualifiers: Encounter type: initial encounter Qualified Code(s): T78.40XA - Allergy, unspecified, initial encounter - Discharge Information Prescriptions: Hydrocodone/Acetaminophen [Hydrocodon-Acetaminophen 5-325] 1 - 2 each PO Q6HR PRN #15 tablet PRN Reason: Pain Penicillin V Potassium 500 mg PO Q6HR #40 tab Referrals: Mabel Mendoza MD [Primary Care Provider] - 1 Week Forms: ED Department Discharge Additional Instructions: Take pepcid 20mg daily for 5 days. Take benadryl 25 to 50mg every 6 hours as needed for any rash or swelling. Take the penicillin VK 4 times per day for the dental infection. You can take some hydrocodone for pain. Follow up with a dentist. Please return if you are worse.
[2017-08-16] MEDS ORDERED: Sodium Chloride 0.9% 10 ML Syringe FLUSH PRN (17:48)
== END 2017-08-16 18:05 | disposition home or self-care (01) ==
LOC: JD.ED 17:16
DX: R22.0 Localized swelling, mass and lump, head (principal); T39.315A Adverse effect of propionic acid derivatives, initial encounter; T39.1X5A Adverse effect of 4-Aminophenol derivatives, initial encounter; K04.7 Periapical abscess without sinus; Z88.8 Allergy status to other drugs, medicaments and biological substances; Z87.891 Personal history of nicotine dependence
CPT/HCPCS: 99283

== ENCOUNTER 2017-09-17 18:46 | Emergency (ER) | payer SELFPAY | END 2017-09-17 19:09 | disposition left against medical advice (07) | LOC: JD.ED 18:46 | DX: Z53.21 Procedure and treatment not carried out due to patient leaving prior to being seen by health care provider (principal) ==

== ENCOUNTER 2018-09-28 15:40 | Emergency (ER) | payer BC, OTHER ==
[2018-09-28 15:51] VITALS: BP 135/75
--- NOTE | 2018-09-28 16:25 | EDM.PDOC ---
ED HPI GENERAL MEDICAL PROBLEM - General Chief Complaint: ENT Problem Stated Complaint: DENTAL COMPLAINT Time Seen by Provider: 09/28/18 15:54 Source of Information: Reports: Patient, RN Notes Reviewed History Limitations: Reports: No Limitations - History of Present Illness INITIAL COMMENTS - FREE TEXT/NARRATIVE: Patient is a 38-year-old female who presents to the ED for the evaluation of a dental problem. The patient notes that she had a tooth in the upper right jaw from which the filling fell out in May. The patient notes that it started to get infected in July. She states that she has pain with chewing, which now is making eating difficult, there is also swelling noted to the area, and she feels as if there is a knot present. She states that she does take some Motrin and this does help some of the pain however it is not really cutting the pain much any longer. She states that the tooth has [id number] at away, and is now down to the gumline. She notes that is also really hard to open her mouth fully. She states that the pain is worse in the night and in the morning. She does have a dentist in [place], and plans to follow up with them then. She states that she is in the process of getting dental implants as well. 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) ED ROS ENT - Review of Systems Review Of Systems: See Below Constitutional: Denies: Fever, Chills HEENT: Reports: Dental Pain Respiratory: Reports: No Symptoms Cardiovascular: Reports: No Symptoms Endocrine: Reports: No Symptoms GI/Abdominal: Reports: No Symptoms : Reports: No Symptoms Musculoskeletal: Reports: No Symptoms Skin: Reports: No Symptoms Neurological: Reports: No Symptoms Psychiatric: Reports: No Symptoms Hematologic/Lymphatic: Reports: No Symptoms ED EXAM, ENT - Physical Exam Exam: See Below Exam Limited By: No Limitations General Appearance: Alert, WD/WN, No Apparent Distress Ears: Normal External Exam Nose: Normal Inspection Mouth/Throat: Normal Inspection, Normal Oropharynx, Dental Pain (Dentition in poor repair, she is having most of her pain to the right posterior portion of her upper jaw. There is a tooth that is half gone and broken down to the gumline. There is redness and swelling noted to the inner gum and outer gum area of this.) Head: Atraumatic, Normocephalic Neck: Normal Inspection, Supple, Non-Tender, Full Range of Motion Respiratory/Chest: No Respiratory Distress, Lungs Clear, Normal Breath Sounds, No Accessory Muscle Use, Chest Non-Tender Cardiovascular: Normal Peripheral Pulses, Regular Rate, Rhythm, No Murmur Neurological: Alert, Oriented, Normal Cognition, No Motor/Sensory Deficits Psychiatric: Normal Affect, Normal Mood Skin: Warm, Dry, Intact, Normal Color, No Rash Course - Vital Signs Last Recorded V/S: Last Vital Signs Temp 98.6 F 09/28/18 15:48 Pulse 82 09/28/18 15:48 Resp 18 09/28/18 15:48 BP 135/75 09/28/18 15:48 Pulse Ox 100 09/28/18 15:48 - Re-Assessments/Exams Free Text/Narrative Re-Assessment/Exam: 09/28/18 16:25 Patient presents to the ED for the evaluation of a dental problem. I have provided the patient with prescription for Augmentin, I did offer her a injection of Toradol, but she declined at this time. Have recommended general NSAID therapy until the antibiotics kick in. Patient is amenable to this plan. Departure - Departure Time of Disposition: 16:26 Disposition: Home, Self-Care 01 Condition: Fair Clinical Impression: Pain, dental - Discharge Information *PRESCRIPTION DRUG MONITORING PROGRAM REVIEWED*: No *COPY OF PRESCRIPTION DRUG MONITORING REPORT IN PATIENT ALFREDO: No Instructions: Diet and Dental Disease Referrals: Mabel Mendoza MD [Primary Care Provider] - Forms: ED Department Discharge, ED Return to Work/School Form Additional Instructions: You have been evaluated in the ED for your dental pain. You have been provided with a script for Augmentin. This has been prescribed through the [facility] machine in the ER lobby, please use the code provided to obtain your prescription. Please take this medication as directed. (1 tab twice daily for 10 days or until gone). Aleve provides good pain relief for dental pain. Please take 1-2 tabs twice daily as needed for pain. You may use hot pack/ ice packs to the affected area as tolerated in 15-20 minute intervals. You will ultimately need to find a dentist to provide definitive management of your dental pain. Please return to the ED if your symptoms change or worsen.
== END 2018-09-28 16:35 | disposition home or self-care (01) ==
LOC: JD.ED 15:40
DX: K03.81 Cracked tooth (principal); Z88.8 Allergy status to other drugs, medicaments and biological substances
CPT/HCPCS: 99282; 99283

== ENCOUNTER 2019-01-28 11:08 | Emergency (ER) | payer BC ==
[2019-01-28 11:21] VITALS: BP 134/90; PULSE 100
--- NOTE | 2019-01-28 14:12 | EDM.PDOC ---
ED HPI GENERAL MEDICAL PROBLEM - General Chief Complaint: ENT Problem Stated Complaint: COUGH,CONGESTION AND VOMITING Time Seen by Provider: 01/28/19 13:40 Source of Information: Reports: Patient, RN Notes Reviewed History Limitations: Reports: No Limitations - History of Present Illness INITIAL COMMENTS - FREE TEXT/NARRATIVE: Patient is a 38-year-old female who presents to the ED for evaluation of a cough and chest congestion for one week. The patient states that she feels as if her chest is tight. She denies any history of any sort of asthma or lung issues. She states that she is a runner so she is in pretty active shape. 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 She states that today she developed some nausea and vomiting, and she noted blood in the vomitus. She denies any sort of diarrhea, had a bowel movement yesterday, and is still able to pass gas. She states that she feels clammy but has not actually documented any fever. She states that she feels swollen as well. She notes that her primary care provider is Dr. Mendoza, but she has not sought evaluation for this sickness by Dr. Mendoza. The patient states that she feels mildly dizzy upon standing as well. She states that she has kids and then get sick from time to time, but she does not feel as if she has much for chest congestion, just characterizes a tightness in her chest, and overall general feeling of being unwell. Patient states that she has had a hysterectomy in the past, and there is no chance that she is at this time. 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: - Past Surgical History Female Surgical History: Reports: Hysterectomy, Salpingo-Oophorectomy Social & Family History - Family History Family Medical History: Noncontributory - Tobacco Use Smoking Status *Q: Current Every Day Smoker Years of Tobacco use: 20 Packs/Tins Daily: 0.2 - Caffeine Use Caffeine Use: Reports: Coffee, Tea - Recreational Drug Use Recreational Drug Use: No - Living Situation & Occupation Living situation: Reports: , with Family (3 kids) 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 Denies: Chest Pain Endocrine: Reports: No Symptoms GI/Abdominal: Reports: Hematemesis (starting today, mild amount of maroon red blood noted in vomitus), Nausea, Vomiting. Denies: Abdominal Pain, Constipation , Diarrhea : Reports: No Symptoms Musculoskeletal: Reports: No Symptoms Skin: Reports: No Symptoms Neurological: Reports: No Symptoms Psychiatric: Reports: No Symptoms Hematologic/Lymphatic: Reports: No Symptoms Immunologic: Reports: No Symptoms ED EXAM, ENT - Physical Exam Exam: See Below Exam Limited By: No Limitations General Appearance: Alert, WD/WN, No Apparent Distress (pt looks as if she does not feel great) Eye Exam: Bilateral Eye: EOMI, Normal Inspection, PERRL Ears: Normal External Exam, Normal Canal, Hearing Grossly Normal, Normal TMs Nose: Normal Inspection, Normal Mucousa, No Blood Mouth/Throat: Normal Inspection, Normal Gums, Normal Lips, Normal Oropharynx, Normal Teeth Head: Atraumatic, Normocephalic Neck: Normal Inspection, Supple, Non-Tender, Full Range of Motion Respiratory/Chest: No Respiratory Distress, Lungs Clear, No Accessory Muscle Use , Chest Non-Tender, Decreased Breath Sounds (bilaterally) Cardiovascular: Normal Peripheral Pulses, Regular Rate, Rhythm, No Murmur GI/Abdominal: Normal Bowel Sounds, Soft, Non-Tender, No Distention, No Mass Extremities: Normal Inspection, Normal Capillary Refill Neurological: Alert, Oriented, Normal Cognition, No Motor/Sensory Deficits Psychiatric: Normal Affect, Normal Mood Skin: Warm, Dry, Intact, Normal Color, No Rash Course - Vital Signs Last Recorded V/S: Last Vital Signs Temp 98.8 F 01/28/19 11:20 Pulse 100 09/25/19 11:20 Resp 20 01/28/19 11:20 BP 134/90 01/28/19 11:20 Pulse Ox 99 01/28/19 14:28 - Orders/Labs/Meds Orders: Active Orders 24 hr Category Date Time Status Orthostatic Vital Signs [RC] ASDIRECTED Care 01/28/19 14:28 Active Peripheral IV Care [RC] . DIRECTED Care 01/28/19 15:09 Active RT Aerosol Therapy [RC] ASDIRECTED Care 01/28/19 14:28 Active Chest 2V [CR] Stat Exams 01/28/19 14:27 Taken Sodium Chloride 0.9% [Saline Flush] Med 01/28/19 15:09 Active 10 ml FLUSH ASDIRECTED PRN Peripheral IV Insertion Adult [OM.PC] Routine Oth 01/28/19 15:09 Ordered Medication Orders Sodium Chloride (Saline Flush) 10 ml FLUSH ASDIRECTED PRN PRN Reason: Keep Vein Open Last Admin: 01/28/19 15:33 Dose: 10 ml Labs: Laboratory Tests 01/28/19 01/28/19 Range/Units 13:24 13:24 WBC 5.18 (3.98-10.04) K/mm3 RBC 4.10 (3.98-5.22) M/mm3 Hgb 12.6 (11.2-15.7) gm/dl Hct 37.9 (34.1-44.9) % MCV 92.4 (79.4-94.8) fl MCH 30.7 (25.6-32.2) pg MCHC 33.2 (32.2-35.5) g/dl RDW Std Deviation 41.3 (36.4-46.3) fL Plt Count 242 (182-369) K/mm3 MPV 10.6 (9.4-12.3) fl Sodium 145 (136-145) mEq/L Potassium 3.8 (3.5-5.1) mEq/L Chloride 107 (98-107) mEq/L Carbon Dioxide 27 (21-32) mEq/L Anion Gap 14.8 (5-15) BUN 13 (7-18) mg/dL Creatinine 0.9 (0.55-1.02) mg/dL Est Cr Clr Drug Dosing 81.61 mL/min Estimated GFR (MDRD) > 60 (>60) mL/min BUN/Creatinine Ratio 14.4 (14-18) Glucose 98 (74-106) mg/dL Calcium 9.3 (8.5-10.1) mg/dL Meds: Medications Generic Name Dose Route Start Last Admin Trade Name Freq PRN Reason Stop Dose Admin Sodium Chloride 10 ml 01/28/19 15:09 01/28/19 15:33 Saline Flush FLUSH 10 ml ASDIRECTED PRN Administration Keep Vein Open Discontinued Medications Generic Name Dose Route Start Last Admin Trade Name Freq PRN Reason Stop Dose Admin Albuterol 2.5 mg 01/28/19 14:28 01/28/19 14:35 Proventil Neb Soln NEB 01/28/19 14:29 2.5 mg ONETIME ONE Administration Sodium Chloride 1,000 mls @ 999 mls/hr 01/28/19 15:09 01/28/19 15:33 Normal Saline IV 01/28/19 16:09 999 mls/hr ONETIME ONE Administration Ondansetron HCl 4 mg 01/28/19 14:28 01/28/19 15:00 Zofran Odt PO 01/28/19 14:29 4 mg ONETIME ONE Administration - Re-Assessments/Exams Free Text/Narrative Re-Assessment/Exam: 01/28/19 14:40 Patient presents to the ED for the evaluation of cough and congestion with nausea and vomiting. CBC and CMP were drawn per triage nurse, and these are within normal limits at this time. Upon initial evaluation of the patient, she states she is just not feeling generally great, and I did order a chest x-ray, nebulizer, and Orthostatic vital signs with 4 mg of Zofran for further management. 01/28/19 16:58 Patient did get IV fluids, and her labs are essentially within normal limits or no acute abnormalities noted today. She feels somewhat better and was requesting to go home at this time, is likely that the patient was suffering from some sort of viral illness in nature. Departure - Departure Time of Disposition: 16:59 Disposition: Home, Self-Care 01 Condition: Fair Clinical Impression: Viral URI Nausea & vomiting Qualifiers: Vomiting type: unspecified Vomiting Intractability: non-intractable Qualified Code(s): R11.2 - Nausea with vomiting, unspecified - Discharge Information *PRESCRIPTION DRUG MONITORING PROGRAM REVIEWED*: No *COPY OF PRESCRIPTION DRUG MONITORING REPORT IN PATIENT ALFREDO: No Instructions: Upper Respiratory Infection, Adult, [id number] Referrals: Mabel Mendoza MD [Primary Care Provider] - Forms: ED Department Discharge Additional Instructions: You have been evaluated in the ED today for your cold like symptoms. This is likely a viral illness in etiology. Please increase your fluid intake. Get plenty of rest as well. You should feel better in a few days. Regarding her nausea, you were given a prescription for Zofran, please take one tab dissolvable by mouth every 8 hours PRN for feelings of nausea. This was electronically prescribed to the [place] pharmacy located in the [facility]. If your symptoms are not better in one week's time recommend that you follow up in a clinic or your primary care provider. Please return to the ED if your symptoms change or worsen. - My Orders Last 24 Hours: My Active Orders 01/28/19 14:27 Chest 2V [CR] Stat 01/28/19 14:28 Orthostatic Vital Signs [RC] ASDIRECTED RT Aerosol Therapy [RC] ASDIRECTED 01/28/19 15:09 Peripheral IV Care [RC] . DIRECTED Sodium Chloride 0.9% [Saline Flush] 10 ml FLUSH ASDIRECTED PRN Peripheral IV Insertion Adult [OM.PC] Routine - Assessment/Plan Last 24 Hours: My Active Orders 01/28/19 14:27 Chest 2V [CR] Stat 01/28/19 14:28 Orthostatic Vital Signs [RC] ASDIRECTED RT Aerosol Therapy [RC] ASDIRECTED 01/28/19 15:09 Peripheral IV Care [RC] . DIRECTED Sodium Chloride 0.9% [Saline Flush] 10 ml FLUSH ASDIRECTED PRN Peripheral IV Insertion Adult [OM.PC] Routine
[2019-01-28] MEDS ORDERED: Albuterol 0.083% 2.5 MG/3 ML Neb Soln NEB ONE (14:28)
[2019-01-28] MEDS ORDERED: Ondansetron 4 MG Tab.DIS PO ONE (14:28)
[2019-01-28] MEDS ORDERED: Sodium Chloride 0.9% 1,000 ML IV ONE (15:09)
[2019-01-28] MEDS ORDERED: Sodium Chloride 0.9% 10 ML Syringe FLUSH PRN (15:09)
--- NOTE | 2019-01-29 07:09 | CR ---
Chest: Two views of the chest were obtained. Comparison: Prior chest x-ray of 06/25/17. Heart size and mediastinum are normal. Lungs are clear. Bony structures appear within normal limits for the patient's age. Impression: 1. Nothing acute is appreciated on two-view chest x-ray. Diagnostic code #1
== END 2019-01-28 17:08 | disposition home or self-care (01) ==
LOC: JD.ED 11:08
DX: J06.9 Acute upper respiratory infection, unspecified (principal); R11.2 Nausea with vomiting, unspecified; Z90.710 Acquired absence of both cervix and uterus; Z90.722 Acquired absence of ovaries, bilateral; F17.210 Nicotine dependence, cigarettes, uncomplicated; Z88.8 Allergy status to other drugs, medicaments and biological substances
CPT/HCPCS: 36415; 71046; 80048; 85027; 94640; 96360; 99284; A9270; J7040

== ENCOUNTER 2019-04-12 17:15 | Emergency (ER) | payer BC ==
[2019-04-12 17:29] VITALS: BP 143/89; PULSE 102
[2019-04-12] MEDS ORDERED: HYDROmorphone 1 MG/ML Syringe IM ONE ×2 (17:57→19:32)
--- NOTE | 2019-04-12 17:57 | EDM.PDOC ---
ED HPI GENERAL MEDICAL PROBLEM - General Chief Complaint: Lower Extremity Injury/Pain Stated Complaint: LEG PAIN Time Seen by Provider: 04/12/19 17:51 Source of Information: Reports: Patient History Limitations: Reports: No Limitations - History of Present Illness INITIAL COMMENTS - FREE TEXT/NARRATIVE: 38-year-old female presents to the ED with marked swelling and pain in her left lower extremity. She states she slipped and fell on the ice while in [place] this weekend and her body weight fell on top of her own leg. Injury occurred about 2000 hrs. on April 10 . She did attend [facility] in [place] and was told that she has fractures that are displaced of both the distal tibia and fibula. Unfortunately they did not send any x-rays along with her. They offered her surgery at that institution but she was car pooling with other people and would not have been able to get back to [place]. At present she is in major pain. She states her current pain medicine which is hydrocodone 5/325 mg tablets are making her nauseated and itchy. She is not in a splint but is in a cast boot brace. She denies any other injuries. Onset: Sudden Onset Date: 04/10/19 Onset Time: 20:00 Duration: Hour(s): Location: Reports: Lower Extremity, Left Quality: Reports: Ache, Sharp, Stabbing, Throbbing Severity: Severe (Current pain 8-9 out of 10.) Improves with: Reports: Rest Worsens with: Reports: Movement Context: Reports: Trauma (Left and fell on the ice and then fell on top of her own leg with her body weight). 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) Left Lower Leg Pain Score (Numeric/FACES): 10 - Related Data Allergies Allergy/AdvReac Type Severity Reaction Status Date / Time promethazine [From Phenergan] AdvReac Hallucinati Verified 01/28/19 11:21 ons Home Meds: Home Meds Hydrocodone/Acetaminophen [Hydrocodon-Acetaminophen 5-325] 1 tab PO Q6H PRN 12/22 [History] Ondansetron [Zofran] 4 mg BUCCAL Q6H PRN #10 tab 04/12/19 [Rx] oxyCODONE HCl/Acetaminophen [Percocet 5-325 mg Tablet] 1 - 2 each PO Q4H PRN # 30 tablet 04/12/19 [Rx] Past Medical History - Past Health History Medical/Surgical History: Denies 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: - Past Surgical History Female Surgical History: Reports: Hysterectomy, Salpingo-Oophorectomy Social & Family History - Family History Family Medical History: Noncontributory - Tobacco Use Smoking Status *Q: Current Every Day Smoker Years of Tobacco use: 20 Packs/Tins Daily: 0.3 - Caffeine Use Caffeine Use: Reports: Coffee - Recreational Drug Use Recreational Drug Use: No - Living Situation & Occupation Living situation: Reports: , with Family (3 kids) 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 Denies: Neck Pain, Shoulder Pain, Arm Pain , Back Pain Skin: Reports: Bruising (Severe left leg pain due to injuries sustained from fall 2 days ago. The ecchymoses of the left ankle and distal tib-fib) Neurological: Reports: No Symptoms Psychiatric: Reports: No Symptoms ED EXAM, GENERAL - Physical Exam Exam: See Below Exam Limited By: No Limitations General Appearance: Alert, WD/WN, Moderate Distress, Other (Is in a good deal of pain. Is 36.6. Pulse is 102 at the bedside respiratory 20 with O2 sats of 100 % on room air. Blood pressure mildly elevated 143/89.) Eye Exam: Bilateral Eye: Normal Inspection Throat/Mouth: Normal Inspection, Normal Lips, Normal Oropharynx Head: Atraumatic, Normocephalic Neck: Normal Inspection, Supple, Non-Tender, Full Range of Motion. No: Lymphadenopathy (L), Lymphadenopathy (R) Respiratory/Chest: No Respiratory Distress, Lungs Clear, Normal Breath Sounds, No Accessory Muscle Use, Chest Non-Tender Cardiovascular: Normal Peripheral Pulses, Regular Rate, Rhythm, No Gallop, No Murmur, No Rub, Other (Left leg is very swollen and edematous with marked ecchymoses from fractures.) Peripheral Pulses: 1+: Posterior Tibial (L), Dorsalis Pedis (L), 3+: Posterior Tibial (R), Dorsalis Pedis (R) GI/Abdominal: Normal Bowel Sounds, Soft, Non-Tender, No Organomegaly, No Mass, Pelvis Stable Back Exam: Normal Inspection, Full Range of Motion. No: CVA Tenderness (L), CVA Tenderness (R) Extremities: Other (Examination of the left lower extremity shows no traumatic effusion in the knee. There is no pain or tenderness along the medial or lateral joint line. There is tenderness on palpation of the proximal fibula and tibia primarily down in the ankle area. Severe pain in the ankle on compression of mid shaft tib-fib. Out is markedly ecchymotic and swollen bilaterally. She's up to the distal one third of the tib-fib. The skin is very taut due to swelling ) Neurological: Alert ( in the soft tissues.), Oriented, CN II-XII Intact, Normal Cognition Psychiatric: Anxious, Other Skin Exam: Warm, Dry, Intact (A lot of pain), Ecchymosis (Left lower extremity) . No: Normal Color Course - Vital Signs Last Recorded V/S: Last Vital Signs Temp 36.6 C 04/12/19 17:28 Pulse 102 H 04/12/19 17:28 Resp 20 04/12/19 17:28 BP 143/89 H 04/12/19 17:28 Pulse Ox 100 04/12/19 17:28 - Orders/Labs/Meds Orders: Active Orders 24 hr Category Date Time Status Ankle wo Cont Lt [CT] Stat Exams 04/12/19 20:02 Ordered Tibia Fibula Lt [CR] Stat Exams 04/12/19 18:00 Taken Meds: Medications Discontinued Medications Generic Name Dose Route Start Last Admin Trade Name Freq PRN Reason Stop Dose Admin Hydromorphone HCl 1 mg 04/12/19 17:57 04/12/19 18:09 Dilaudid IM 04/12/19 17:58 1 mg ONETIME ONE Administration Hydromorphone HCl 1 mg 04/12/19 19:32 04/12/19 19:38 Dilaudid IM 04/12/19 19:33 1 mg ONETIME ONE Administration Ondansetron HCl 4 mg 04/12/19 17:58 04/12/19 18:08 Zofran Odt PO 04/12/19 17:59 4 mg ONETIME ONE Administration Oxycodone/Acetaminophen 2 tab 04/12/19 18:48 04/12/19 18:52 Percocet 325-5 Mg PO 04/12/19 18:49 2 tab ONETIME ONE Administration - Radiology Interpretation Free Text/Narrative:: 38-year-old female presents to the ED after slipping and falling on ice while in [place] on Saturday night at about 2000 hrs. She stepped off a curb slipped on snow-covered ice and fell on top of her left leg with her own body weight. She was taken to [facility] in [place] and apparently had x-rays done which showed displacement of both the distal tibia and fibula. He was offered surgery at that institution but declined as she was car pooling with other people and would've been stranded in [place]. She just arrived back in [place] within the last hour. She has been taking Percocet 5/325 mg tablet every 6 hours with no relief of the pain. Infectious states they're making her nauseated and somewhat itchy. No placed in any form of splint but is in a cast boot brace. Is nonweightbearing crutch walking. We are not able to get copies of the x-rays from [facility] and therefore repeat x-rays of the tib-fib will be done here. She will be given 1 mg of Dilaudid IM with Zofran 4 mg sublingual for acute pain relief. - Re-Assessments/Exams Free Text/Narrative Re-Assessment/Exam: 04/12/19 18:34 X-rays of the left tib-fib reveal a fracture of the distal fibula does not appear to enter the joint space. There is a fracture of the posterior malleolus off the distal tibia that is significantly displaced and mildly comminuted that will require surgical repair. The medial malleolus appears intact. I put a phone call into Dr. Martinez today who supposedly stonework tracer but I only got his answering service. I believe he has 7 surgical cases planned for tomorrow and it's unlikely that he would be able to fit her in tomorrow but only he can answer that question. 04/12/19 18:53 Nurses have identified that there are 7 beds to be filled tomorrow with orthopedic surgical patients meaning that Dr Pereira has already can do on his surgical date tomorrow. If ongoing to place her in a posterior slab Ortho-Glass splint and stirrup splint to maintain position of these fractures better than the cast boot brace that she was wearing. She is still having significant pain even after a milligram of Dilaudid. The hydrocodone that she was prescribed is not helping the pain and is making her itchy. I will therefore try her on oxycodone 5/325mg given two tablets now in the ED for pain relief and make sure she can tolerate them. 04/12/19 20:04 Dr. Rosenberg did call back once he found his phone had disappeared by his 8-year-old son. He requests CT of the ankle be done prior to consultation for surgical management. He has a full day in the OR tomorrow and thinks he will see her on Saturday in consultation. CT will be ordered. Departure - Departure Time of Disposition: 20:30 Disposition: Home, Self-Care 01 Condition: Fair Clinical Impression: Closed fracture of tibia AND fibula Closed fracture of distal end of fibula with tibia Qualifiers: Encounter type: initial encounter Laterality: left Qualified Code(s): S82.302A - Unspecified fracture of lower end of left tibia, initial encounter for closed fracture - Discharge Information *PRESCRIPTION DRUG MONITORING PROGRAM REVIEWED*: Not Applicable *COPY OF PRESCRIPTION DRUG MONITORING REPORT IN PATIENT ALFREDO: Not Applicable Prescriptions: Ondansetron [Zofran] 4 mg BUCCAL Q6H PRN #10 tab PRN Reason: nausea or vomiting oxyCODONE HCl/Acetaminophen [Percocet 5-325 mg Tablet] 1 - 2 each PO Q4H PRN # 30 tablet PRN Reason: pain relief. Referrals: Bubba Mendoza MD [Primary Care Provider] - Forms: ED Department Discharge, ED Return to Work/School Form Additional Instructions: Evaluation the emergency room tonight in regards to injuries to the your left lower leg that occurred Saturday night from his slip and fall on the ice. Trace done in [place] did reveal that both bones in your lower leg are broken. Not have access to those x-rays and they did not send them with you. X-rays were done in the ED and confirm that there is a posterior malleolus fracture off the back of the tibia bone which is the major weightbearing bone and is going to need to be surgically fixed. There is also a linear fracture through the distal aspect or lower aspect of the fibula or outside ankle bone. I was unable to reach the orthopedic surgeon at this time. Therefore you were placed in a Ortho-Glass splint to maintain position of the fractured fragments and minimize her pain and discomfort. Important to keep the leg elevated as much as possible of almost above the level of the heart with 2 or 3 pillows under your foot well on the couch or bed to help the swelling go down. Pain medication is to be Percocet 5/325 mg usually 2 tablets every 3-4 hours as necessary for pain relief. May use Zofran 4 mg under the tongue every 4-6 hours as well to relieve any nausea or vomiting that can sometimes be induced by pain pills. Please contact Dr. Pereira's office tomorrow morning to arrange an appointment for surgical consultation and management of your fractures. The phone number is . If you can tolerate it ice pack to the leg over the splint for one half hour out of every 4 hours is still useful to help reduce swelling. Pain pills cause constipation. Take MiraLAX powder a scoop 17 g every day while on pain pills to prevent constipation from occurring. - My Orders Last 24 Hours: My Active Orders 04/12/19 18:00 Tibia Fibula Lt [CR] Stat 04/12/19 20:02 Ankle wo Cont Lt [CT] Stat - Assessment/Plan Last 24 Hours: My Active Orders 04/12/19 18:00 Tibia Fibula Lt [CR] Stat 04/12/19 20:02 Ankle wo Cont Lt [CT] Stat
[2019-04-12] MEDS ORDERED: Ondansetron 4 MG Tab.DIS PO ONE (17:58)
[2019-04-12] MEDS ORDERED: Acetaminophen/oxyCODONE 325-5 MG Tab PO ONE (18:48)
--- NOTE | 2019-04-13 10:36 | CR ---
Left tibia and fibula: AP and lateral views of left tibia and fibula were obtained. Comparison: No previous study. Posterior malleolus fracture seen with articular extension and mild displacement. Distal fibular fracture is seen to involve the lateral malleolus. No proximal abnormality is seen. Impression: 1. Distal tibia and fibular fracture as noted above. Articular extension is seen. 2. Soft tissue swelling. Diagnostic code #3 This report was dictated in [place] Standard Time
--- NOTE | 2019-04-13 12:54 | CT ---
CT left ankle Technique: Multiple axial sections through the left ankle were obtained. Reconstructed coronal and sagittal images were obtained. Findings: Fracture is identified within the distal fibula with displacement of the distal fragment by about 4.9 mm in the lateral direction. Distal fibular fragment is also displaced anteriorly by about 7.4 mm. Fracture is also noted within the distal tibia which is mildly comminuted. Fracture obliquely involves the posterior and lateral aspect of the tibia with articular extension. Fracture line is widened up to 4.4 mm. Small fracture is noted within the posterior aspect of the medial malleolus. Diffuse soft tissue swelling is seen. Ankle mortise is mildly asymmetric. Impression: 1. Fractures within the distal fibula and distal tibia as noted above. 2. Ankle mortise is asymmetric. 3. Diffuse soft tissue swelling is present. Diagnostic code #3 MTDD
== END 2019-04-12 21:00 | disposition home or self-care (01) ==
LOC: JD.ED 17:15 → SUPCPDRO 17:15 → JD.ED 21:00
DX: S82.392A Other fracture of lower end of left tibia, initial encounter for closed fracture (principal); S82.832A Other fracture of upper and lower end of left fibula, initial encounter for closed fracture; F17.210 Nicotine dependence, cigarettes, uncomplicated; Z88.8 Allergy status to other drugs, medicaments and biological substances; W00.0XXA Fall on same level due to ice and snow, initial encounter
CPT/HCPCS: 29515; 73590; 73700; 96372; 99282; A9270; J1170; 99284

== ENCOUNTER 2019-04-16 08:31 | Day surgery (SDC) | payer BC ==
[~2019-04-16 08:31] MED LIST: Lactated Ringers 1,000 ML IV SCH; Lidocaine 1% 4 ML ONE; Lidocaine 1%/Sod Bicarbonate in NS 8.4% 1 ML Syringe IDERM PRN; Midazolam 1 MG/ML 2 ML SDV ONE; Propofol 200 MG/20 ML SDV ONE; Rocuronium 50 MG/5 ML Vial ONE; Scopolamine 1.5 MG Transdermal Patch TRDERM SCH; Sodium Chloride 0.9% 10 ML Syringe FLUSH PRN; fentaNYL 250 MCG/5 ML SDV ONE
[2019-04-16] MEDS ORDERED: Dexamethasone 4 MG/ML SDV ONE (08:32)
[2019-04-16] MEDS ORDERED: Ketorolac 15 MG/ML SDV ONE (08:32)
--- NOTE | 2019-04-16 09:10 | PCM.PREANE ---
Preanesthetic Assessment - Procedure Proposed Procedure: ORIF Left ankle - Anesthesia/Transfusion/Family Hx Anesthesia History: Prior Anesthesia Reaction (nausea) Family History of Anesthesia Reaction: No Transfusion History: Prior Transfusion Without Reaction Intubation History: Unknown - Review of Systems General: No Symptoms Pulmonary: No Symptoms Cardiovascular: No Symptoms Gastrointestinal: No Symptoms Neurological: Numbness (operative foot N&T ), Tingling Other: Reports: None - Physical Assessment NPO Status Date: 04/16/19 NPO Status Time: 23:00 Height: 1.73 m ASA Class: 2 Mental Status: Alert & Oriented x3 Dentition: Reports: [place](s), Implants, Caries (poor dentention, implant right upper, caps 3 front teeth ) ROM/Head Extension: Full Lungs: Clear to Auscultation, Normal Respiratory Effort Cardiovascular: Regular Rate, Regular Rhythm - Lab Values: Laboratory Last Values MRSA (PCR) Negative 04/14/19 09:37 - Allergies Allergies/Adverse Reactions: Allergies Allergy/AdvReac Type Severity Reaction Status Date / Time promethazine [From Phenergan] AdvReac Hallucinati Verified 04/15/19 17:08 ons - Blood Blood Available: No - Anesthesia Plan Pre-Op Medication Ordered: Other (scopalamine patch ) - Acknowledgements Anesthesia Type Planned: General Anesthesia Pt an Appropriate Candidate for the Planned Anesthesia: Yes Alternatives and Risks of Anesthesia Discussed w Pt/Guardian: Yes Pt/Guardian Understands and Agrees with Anesthesia Plan: Yes PreAnesthesia Questionnaire - Past Health History Medical/Surgical History: Denies 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: - Past Surgical History Female Surgical History: Reports: Hysterectomy, Salpingo-Oophorectomy - SUBSTANCE USE Smoking Status *Q: Current Every Day Smoker Recreational Drug Use History: No - HOME MEDS Home Medications: Home Meds Ondansetron [Zofran] 4 mg BUCCAL Q6H PRN #10 tab 04/12/19 [Rx] oxyCODONE HCl/Acetaminophen [Percocet 5-325 mg Tablet] 1 - 2 each PO Q4H PRN # 30 tablet 04/12/19 [Rx] Aspirin 325 mg PO BID #84 tab 04/16/19 [Rx] - CURRENT (IN HOUSE) MEDS Current Meds: Current Medications Lactated Ringer's (Ringers, Lactated) 1,000 mls @ 125 mls/hr IV ASDIRECTED GENET Stop: 04/16/19 23:00 Lidocaine/Sodium Bicarbonate (Buffered Lidocaine 1% In Ns 8.4%) 0.25 ml IDERM ONETIME PRN PRN Reason: Prior to IV Start Stop: 04/16/19 18:00 Scopolamine (Transderm-Scop) 1.5 mg TRDERM ONETIME GENET Stop: 04/16/19 12:00 Sodium Chloride (Saline Flush) 10 ml FLUSH ASDIRECTED PRN PRN Reason: Keep Vein Open Stop: 04/16/19 18:00 Discontinued Medications Dexamethasone (Dexamethasone) Confirm Administered Dose 4 mg .ROUTE .STK-MED ONE Stop: 04/16/19 08:33 Fentanyl (Sublimaze) Confirm Administered Dose 250 mcg .ROUTE .STK-MED ONE Stop: 04/16/19 08:24 Lidocaine HCl (Xylocaine-Mpf 1%) Confirm Administered Dose 4 mls @ as directed .ROUTE .STK-MED ONE Stop: 04/16/19 08:25 Ketorolac Tromethamine (Toradol) Confirm Administered Dose 15 mg .ROUTE .STK- MED ONE Stop: 04/16/19 08:33 Midazolam HCl (Versed 1 Mg/Ml) Confirm Administered Dose 2 mg .ROUTE .STK-MED ONE Stop: 04/16/19 08:24 Propofol (Diprivan 20 Ml) Confirm Administered Dose 400 mg .ROUTE .STK-MED ONE Stop: 04/16/19 08:24 Rocuronium [place] (Zemuron) Confirm Administered Dose 50 mg .ROUTE .STK-MED ONE Stop: 04/16/19 08:31
[2019-04-16] MEDS ORDERED: Bupivacaine 0.25% 10 ML SDV ONE (09:35)
[2019-04-16] MEDS ORDERED: ceFAZolin 1 GM Vial ONE (10:20)
[2019-04-16] MEDS ORDERED: diphenhydrAMINE 50 MG/ML SDV ONE (10:33)
[2019-04-16] MEDS ORDERED: Ketamine 500 mg/10 ML MDV ONE (10:34)
[2019-04-16] MEDS ORDERED: HYDROmorphone 0.5 MG/0.5 ML Syringe ONE ×4 (10:37→12:24)
[2019-04-16] MEDS ORDERED: Propofol 200 MG/20 ML SDV ONE (10:54)
[2019-04-16] MEDS ORDERED: Lactated Ringers 1,000 ML ONE (11:56)
--- NOTE | 2019-04-16 12:04 | CR ---
Left ankle: 7 fluoroscopic spot views were obtained of the left ankle. Study obtained utilizing C-arm device. Comparison: Prior CT left ankle study of 04/12/19 and left tibia and fibula study with the same date. Study shows placement of plate and screws across previous fibular fracture. Reduction appears to be present within previous tibial fracture. Ankle mortise is symmetric. Fluoroscopy time given as 48.1 seconds. Impression: 1. Procedural study as noted above. Diagnostic code #2 This report was dictated in [place] Standard Time
[2019-04-16] MEDS ORDERED: fentaNYL 100 MCG/2 ML SDV IVPUSH PRN (12:20)
[2019-04-16] MEDS ORDERED: Ondansetron 4 MG/2 ML SDV IVPUSH PRN (12:20)
[2019-04-16] MEDS ORDERED: HYDROmorphone 0.5 MG/0.5 ML Syringe IVPUSH PRN (12:21)
[2019-04-16] MEDS ORDERED: LORazepam 2 MG/ML SDV IVPUSH ONE (12:27)
--- NOTE | 2019-04-16 12:31 | PCM.POSTAN ---
POST ANESTHESIA ASSESSMENT - MENTAL STATUS Mental Status: Alert, Other (anxious ) - VITAL SIGNS Vital Signs: Last Vital Signs Temp 36.5 C 04/16/19 12:05 Pulse 85 04/16/19 08:45 Resp 12 04/16/19 12:20 BP 94/60 04/16/19 12:20 Pulse Ox 92 L 04/16/19 12:20 - RESPIRATORY Respiratory Status: Respiratory Rate WNL, Airway Patent, O2 Saturation Stable, Elevated Respiratory Rate - CARDIOVASCULAR CV Status: Blood Pressure Stable, Elevated Pulse Rate - GASTROINTESTINAL GI Status: No Symptoms - PAIN Pain Score: 9 (being treated ) - POST OP HYDRATION Hydration Status: Adequate & Stable
[2019-04-16] MEDS ORDERED: Acetaminophen/oxyCODONE 325-5 MG Tab PO PRN (12:39)
--- NOTE | 2019-04-16 14:54 | PCM48HPAN ---
Post Anesthesia Note - EVALUATION WITHIN 48HRS OF ANESTHETIC Vital Signs in Normal Range: Yes Patient Participated in Evaluation: Yes Respiratory Function Stable: Yes Airway Patent: Yes Cardiovascular Function Stable: Yes Hydration Status Stable: Yes Pain Control Satisfactory: Yes Nausea and Vomiting Control Satisfactory: Yes Mental Status Recovered: Yes Vital Signs: Last Vital Signs Temp 37.0 C 04/16/19 13:30 Pulse 89 04/16/19 14:25 Resp 12 04/16/19 14:25 BP 99/73 04/16/19 14:25 Pulse Ox 93 L 04/16/19 14:25 - COMMENTS/OBSERVATIONS Free Text/Narrative:: Lady is still having pain, but feels she is ready to go home at this point. Dr. Pereira updated regarding her pain control.
[2019-04-16 15:23] VITALS: BP 115/84; PULSE 97
--- NOTE | 2019-04-22 12:30 | PCM.OPNOTE ---
- General Post-Op/Procedure Note Date of Surgery/Procedure: 04/16/19 Operative Procedure(s): open reduction internal fixation of left lateral malleolus fracture Pre Op Diagnosis: displaced left leateral malleolus fracture Post-Op Diagnosis: Same Anesthesia Technique: General LMA, Local Primary Surgeon: Elijah Pereira Anesthesia Provider: Essence Rand K9 Handler: Chanel Bolanos EBL in mLs: 10 Complications: None Condition: Good
--- NOTE | 2019-04-23 07:20 | OR ---
DATE OF OPERATION: 04/16/2019 SURGEON: Elijah Pereira MD OPERATION PERFORMED: Open reduction and internal fixation of left lateral malleolus fracture. PREOPERATIVE DIAGNOSIS: Displaced left lateral malleolus fracture. POSTOPERATIVE DIAGNOSIS: Displaced left lateral malleolus fracture. ANESTHESIA: General LMA with local. ANESTHESIA PROVIDER: Essence Rand. UNIT CONTROL WORKER: Chanel Bolanos PA-C. ESTIMATED BLOOD LOSS: 10 mL. COMPLICATIONS: None. CONDITION: Stable. DESCRIPTION OF PROCEDURE: The patient was identified in the preop holding area. Proper site was marked and identified by the surgeon. The patient was taken back to operating theater where after adequate anesthesia, the patient had nonsterile tourniquet applied to left lower extremity. The left lower extremity was then sterilely prepped and draped in the usual sterile fashion. OR time-out was performed. The patient received 2 g IV Ancef. The left lower extremity was then exsanguinated and tourniquet was insufflated to 250 mmHg. Standard lateral incision was made over the lateral malleolus. This was taken down to fracture site. All soft tissue was removed from the fracture site. The hematoma was curetted and rongeured from the fracture site. The [id number] reduction clamp was then done and a Alphonso 5 hole distal fibular locking plate was then placed. It was found to be in adequate position with adequate rastafari of fibular length on C-arm fluoroscopy. At this time, a nonlocking screw was placed proximally. I then lagged through the plate distally across the fracture. Three locking screws were then placed distally and then 3 more cortical screws were replaced proximally. This was found to have adequate fixation and anatomic reduction both AP, mortise and lateral views of the ankle. At this time, an external rotation stress view was then done. There was no medial clear space widening, so I decided syndesmotic fixation did not have to be done. At this time, adequate saline was irrigated through the wound. A 2-0 Vicryl was used subcutaneously, and carmen were used for the skin. The patient tolerated the procedure well and was sent to PACU in stable condition in a posterior slab splint and a sterile soft dressing. MMODAL /[id number]
== END 2019-04-16 15:20 | disposition home or self-care (01) ==
LOC: JD.SDS 08:31
PROVIDERS: ATTEND Orthopaedic Surgery
DX: S82.62XA Displaced fracture of lateral malleolus of left fibula, initial encounter for closed fracture (principal); F17.210 Nicotine dependence, cigarettes, uncomplicated; Z88.8 Allergy status to other drugs, medicaments and biological substances
CPT/HCPCS: 27792; 76000; 87641; A9270; C1713; C1776; J0690; J1100; J1170; J1200; J1885; J2001; J2060; J2250; J2704; J3010; J3490; J7120; 01480

== ENCOUNTER 2019-04-17 13:04 | Emergency (ER) | payer BC ==
[2019-04-17 13:30] VITALS: BP 134/101; PULSE 108
--- NOTE | 2019-04-17 13:47 | EDM.PDOC ---
ED HPI GENERAL MEDICAL PROBLEM - General Chief Complaint: Lower Extremity Injury/Pain Stated Complaint: LEG AND FOOT SURGERY YESTERDAY NEED PAIN CONTROL Time Seen by Provider: 04/17/19 13:22 Source of Information: Reports: Patient History Limitations: Reports: No Limitations - History of Present Illness INITIAL COMMENTS - FREE TEXT/NARRATIVE: Patient is a 38-year-old female who presents with complaints of left lower extremity pain. She did have an ORIF of the left lateral malleolus yesterday with Dr. Pereira. She states that she was prescribed Percocet for the pain. She took 2 of them around 7:30 this morning, however, this did not work to relieve her pain. She states that she did also fall at the pharmacy today, however she was careful to not land on her leg. She has been using ice and elevation intermittently. 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 Denies: Chills, Fever Eyes: Reports: No Symptoms Ears: Reports: No Symptoms Nose: Reports: No Symptoms Mouth/Throat: Reports: No Symptoms Respiratory: Reports: No Symptoms. Denies: Shortness of Breath, Wheezing, Cough Cardiovascular: Reports: No Symptoms GI/Abdominal: Reports: No Symptoms Genitourinary: Reports: No Symptoms Musculoskeletal: Reports: Leg Pain Skin: Reports: No Symptoms Neurological: Reports: No Symptoms. Denies: Numbness, Tingling Psychiatric: Reports: No Symptoms ED EXAM, GENERAL - Physical Exam Exam: See Below Exam Limited By: No Limitations General Appearance: Alert, WD/WN, No Apparent Distress Head: Atraumatic, Normocephalic Respiratory/Chest: No Respiratory Distress, Lungs Clear, Normal Breath Sounds, No Accessory Muscle Use, Chest Non-Tender Cardiovascular: Normal Peripheral Pulses, Regular Rate, Rhythm, No Edema, No Murmur Extremities: Normal Capillary Refill (LLE), Leg Pain (left lower extremity), Other (Pt able to move toes and feel touch. Toes warm to touch. Capillary refill 2+.) Neurological: Alert, Oriented, Normal Cognition Psychiatric: Normal Affect, Normal Mood Skin Exam: Warm, Dry, Intact, Normal Color, No Rash Course - Vital Signs Last Recorded V/S: Last Vital Signs Temp 97.2 F 04/17/19 13:21 Pulse 108 H 04/17/19 13:21 Resp 18 04/17/19 13:21 BP 134/101 H 04/17/19 13:21 Pulse Ox 100 04/17/19 13:21 - Orders/Labs/Meds Meds: Medications Discontinued Medications Generic Name Dose Route Start Last Admin Trade Name Freq PRN Reason Stop Dose Admin Hydromorphone HCl 2 mg 04/17/19 13:38 04/17/19 14:05 Dilaudid IM 04/17/19 13:39 Not Given ONETIME ONE Hydromorphone HCl 1 mg 04/17/19 14:00 04/17/19 14:01 Dilaudid IM 04/17/19 14:01 1 mg ONETIME ONE Administration Hydromorphone HCl 1 mg 04/17/19 14:50 04/17/19 15:09 Dilaudid IM 04/17/19 14:51 1 mg ONETIME ONE Administration - Re-Assessments/Exams Free Text/Narrative Re-Assessment/Exam: Patient is a 38-year-old female who presents with complaints of left lower extremity pain status post ORIF of the left lateral malleolus. She took 2 Percocet around 7:30 this morning however she states that she did not get significant relief from these. She was at the pharmacy prior to coming here and she did fall however she did not fall on the leg. She rates the pain at 10 out of 10. On exma, CMS are intact distal to the injury. Toes are warm and pink with 2+ capillary refill. She is able to move them without difficulty. I will give Dilaudid 1 mg IM at this time. I did discuss the importance of her standing on top of her pain medications for the first couple days in order to achieve optimal relief. We also discussed the importance of continued ice and elevation. 04/17/19 14:51 On reassessment patient did have a little relief with the Dilaudid 1 mg. Currently rates pain 7 out of 10. She would like something extra for the pain and then to go home. I will order another dose of Dilaudid 1 mg IM and then proceed with discharge. Discharge instructions as noted. Departure - Departure Time of Disposition: 14:52 Disposition: Home, Self-Care 01 Condition: Fair Clinical Impression: Postoperative pain of extremity - Discharge Information *PRESCRIPTION DRUG MONITORING PROGRAM REVIEWED*: No *COPY OF PRESCRIPTION DRUG MONITORING REPORT IN PATIENT ALFREDO: No Instructions: Pain Relief Before and After Surgery Referrals: Elijah Pereira MD [Primary Care Provider] - Forms: ED Department Discharge Additional Instructions: You were seen in the emergency department today with complaints of pain to your left lower extremity after having surgery with Dr. Pereira yesterday. You received 2 doses of Dilaudid for your pain and did have some improvement. At this time we recommend that you go home and rest. Continue to ice and elevate the extremity as much as possible. We do recommend that you continue to use your Percocet that was prescribed by Dr. Pereira. For the next couple days I would recommend taking it every 4 hours routinely to stay on top of your pain. Please be aware that these medications can cause constipation so you should consider taking a stool softener with them as well as consuming an adequate amount of fiber and water. As always, if you should experience any new or worsening symptoms please do not hesitate to return to the emergency department. Sepsis Event Note - Evaluation Sepsis Screening Result: No Definite Risk - Focused Exam Vital Signs: Vital Signs Temp Pulse Resp BP Pulse Ox 04/17/19 13:21 97.2 F 108 H 18 134/101 H 100 Date Exam was Performed: 04/17/19 Time Exam was Performed: 18:15
[2019-04-17] MEDS: HYDROmorphone 1 MG/ML Syringe IM ONE ×2 (13:59→14:05)
[2019-04-17] MEDS ORDERED: HYDROmorphone 1 MG/ML Syringe IM ONE ×2 (14:00→14:50)
== END 2019-04-17 15:13 | disposition home or self-care (01) ==
LOC: JD.ED 13:04
DX: G89.18 Other acute postprocedural pain (principal); M79.662 Pain in left lower leg; Z88.8 Allergy status to other drugs, medicaments and biological substances
CPT/HCPCS: 96372; 99283; J1170

== ENCOUNTER 2019-06-21 09:55 | Emergency (ER) | payer BC ==
[2019-06-21 10:05] VITALS: BP 119/89; PULSE 132
[2019-06-21] MEDS ORDERED: HYDROmorphone 1 MG/ML Syringe IVPUSH ONE (10:07)
[2019-06-21] MEDS ORDERED: Metoclopramide 10 MG/2 ML SDV IVPUSH ONE (10:07)
--- NOTE | 2019-06-21 10:12 | EDM.PDOC ---
ED HPI GENERAL MEDICAL PROBLEM - General Chief Complaint: Lower Extremity Injury/Pain Stated Complaint: [facility] Time Seen by Provider: 06/21/19 10:07 Source of Information: Reports: Patient History Limitations: Reports: No Limitations - History of Present Illness INITIAL COMMENTS - FREE TEXT/NARRATIVE: 38-year-old female presents to the ED with reportedly slipping and falling on the ice last night outside of her home. She was drinking alcohol last evening. She has fallen and fractured her distal tib-fib requiring open reduction internal fixation I believe of both the fibula and medial malleolus in April of last year. At present she is complaining of severe pain left tib-fib radial lip to her left hip. She denies hitting her head or losing consciousness. No nausea or vomiting. Paramedics have given her 100 g of fentanyl IV with very little relief of the pain. She has had total abdominal hysterectomy and BSO. I look at the old notes it appears that she had open reduction internal fixation of a lateral malleolus fracture April [address] Pereira--orthopedic surgeon at our institution. Onset: Today Onset Date: 06/21/19 Onset Time: 00:45 Duration: Hour(s): Location: Reports: Lower Extremity, Left (Severe pain left distal tib-fib radiology up to her left hip and pituitary near knee and left ankle. Unable to weight-bear at all.) Quality: Reports: Ache, Throbbing Severity: Severe Improves with: Reports: None (10 out of 10) Worsens with: Reports: Movement (Any movement causes severe pain.) Context: Reports: Trauma. Denies: Activity, Exercise, Lifting, Sick Contact Associated Symptoms: Reports: Cough, Loss of Appetite, Malaise, Nausea/Vomiting (Nausea without). Denies: No Other Symptoms, Confusion (Slipped and fell on the ice outside her home earlier this morning.), Chest Pain, cough w sputum, Diaphoresis, Fever/Chills, Headaches (Not sleeping all night.), Rash, Seizure ( vomiting), Shortness of Breath, Syncope, Weakness Treatments CUSTOMER CARE ASSISTANT: Reports: Other (see below) (Paramedics of given her fentanyl 100 g IV.) Left Leg Pain Score (Numeric/FACES): 10 - Related Data Allergies Allergy/AdvReac Type Severity Reaction Status Date / Time promethazine [From Phenergan] AdvReac Hallucinati Verified 06/21/19 10:05 ons Past Medical History - Past Health History Medical/Surgical History: Denies 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/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: - Past Surgical History Female Surgical History: Reports: Hysterectomy, Salpingo-Oophorectomy Musculoskeletal Surgical History: Reports: ORIF Social & Family History - Family History Family Medical History: Noncontributory - Caffeine Use Caffeine Use: Reports: Coffee - Living Situation & Occupation Living situation: Reports: , with Family (3 kids) 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) Review of Systems - Review of Systems Review Of Systems: See Below Constitutional: Reports: Other (Crying out loudly a due to any movement of her left lower extremity.) Eyes: Reports: Other (Red and inflamed from crying.) Mouth/Throat: Reports: Other (Tongue is mildly dry and coated.) Respiratory: Reports: Cough (Reports mild cough at times), Other (Mild tachypnea.) Cardiovascular: Reports: No Symptoms GI/Abdominal: Reports: Other (Mild nausea at this time.) Genitourinary: Reports: No Symptoms Musculoskeletal: Reports: Other (Was just recovering from a fractured distal left fibula April 17 which is been plated and screwed.) Skin: Reports: No Symptoms Neurological: Reports: No Symptoms Psychiatric: Reports: No Symptoms ED EXAM, GENERAL - Physical Exam Exam: See Below Exam Limited By: Intoxication (She remains intoxicated Whisman is faint smell of alcohol on her breath.) General Appearance: Alert, Severe Distress, Other (Anxious and crying. Temperature is 37.3 and she feels warmer to palpation in this. Pulse is 132 and sinus respiratory distress 20 BP 119/89 and O2 sats of 98% on room air.) Eye Exam: Bilateral Eye: Conjunctival Injection (Bilaterally from crying.), PERRL Throat/Mouth: Normal Inspection, Normal Oropharynx, Other (No dental or tongue trauma. Is mildly dry.) Head: Other (No outward signs of any head or facial trauma.). No: Atraumatic, Normocephalic Neck: Normal Inspection, Supple, Non-Tender, Full Range of Motion, Limited Range of Motion. No: Lymphadenopathy (L), Lymphadenopathy (R) Respiratory/Chest: Lungs Clear (Mild tachypnea at rest.), Normal Breath Sounds, No Accessory Muscle Use, Chest Non-Tender, Respiratory Distress Cardiovascular: Normal Peripheral Pulses, No Murmur, No Rub, Tachycardia ( Echocardiographic rest 1 32/m with crying.) Peripheral Pulses: 2+: Posterior Tibial (L), Posterior Tibial (R), Dorsalis Pedis (L), Dorsalis Pedis (R), 3+: Carotid (L), Carotid (R) GI/Abdominal: Normal Bowel Sounds, Soft, Non-Tender, No Organomegaly, No Abnormal Bruit, No Mass, Pelvis Stable Back Exam: Normal Inspection. No: CVA Tenderness (L), CVA Tenderness (R) Extremities: Other (Inspection of her left lower extremity shows no obvious traumatic effusion of the knee. Patellofemoral articulation although painful was normal. There is obvious deformity and swelling of the mid distal tib-fib. Surgery to the lateral aspect of the left lower extremity. She is unable to move the leg in any fashion or form. Complains of pain rating up to her left hip and into her left ankle.) Psychiatric: Tearful, Other Skin Exam: Warm (Agitated and crying.), Dry, Intact, Other (Ecchymoses and swelling distal mid tib-fib. Left side) ED TRAUMA EXTREMITY PROCEDURES - Splinting Left Lower Extremity Splint Site: Above-knee posterior Ortho-Glass lab Pre-Procedure NV Status: Normal Post-Procedure NV Status: Normal Splint Material: Fiberglass Splint Design: Posterior Applied & Form Fitted By: Provider Provider Post-Splint Application NV Check: NV Status Normal Complications: No Progress/Comments: Patient has suffered a spiral fracture of her distal left tibia and proximal left fibula. Splint was therefore placed with the leg at 30 flexion Course - Vital Signs Last Recorded V/S: Last Vital Signs Temp 37.3 C 06/21/19 09:59 Pulse 132 H 06/21/19 09:59 Resp 20 06/21/19 09:59 BP 119/89 06/21/19 09:59 Pulse Ox 98 06/21/19 09:59 - Orders/Labs/Meds Orders: Active Orders 24 hr Category Date Time Status EKG Documentation Completion [RC] STAT Care 06/21/19 10:08 Active Sodium Chloride 0.9% [Normal Saline] 1,000 ml Med 06/21/19 10:15 Active IV ASDIRECTED Medication Orders Sodium Chloride (Normal Saline) 1,000 mls @ 500 mls/hr IV ASDIRECTED GENET Last Admin: 06/21/19 10:33 Dose: 500 mls/hr Labs: Laboratory Tests 06/21/19 06/21/19 06/21/19 Range/Units 10:55 10:55 10:55 WBC 9.11 (3.98-10.04) K/mm3 RBC 3.97 L (3.98-5.22) M/mm3 Hgb 12.3 (11.2-15.7) gm/dl Hct 36.1 (34.1-44.9) % MCV 90.9 (79.4-94.8) fl MCH 31.0 (25.6-32.2) pg MCHC 34.1 (32.2-35.5) g/dl RDW Std Deviation 41.2 (36.4-46.3) fL Plt Count 250 (182-369) K/mm3 MPV 10.6 (9.4-12.3) fl Neut % (Auto) 75.8 H (34.0-71.1) % Lymph % (Auto) 18.2 L (19.3-51.7) % Warren % (Auto) 5.3 (4.7-12.5) % Eos % (Auto) 0.4 L (0.7-5.8) Baso % (Auto) 0.3 (0.1-1.2) % Neut # (Auto) 6.90 H (1.56-6.13) K/mm3 Lymph # (Auto) 1.66 (1.18-3.74) K/mm3 Warren # (Auto) 0.48 H (0.24-0.36) K/mm3 Eos # (Auto) 0.04 (0.04-0.36) K/mm3 Baso # (Auto) 0.03 (0.01-0.08) K/mm3 PT 10.5 (9.7-12.0) SECONDS INR 0.96 APTT 26 (22-31) SECONDS Sodium 145 (136-145) mEq/L Potassium 3.8 (3.5-5.1) mEq/L Chloride 107 (98-107) mEq/L Carbon Dioxide 25 (21-32) mEq/L Anion Gap 16.8 H (5-15) BUN 7 (7-18) mg/dL Creatinine 0.8 (0.55-1.02) mg/dL Est Cr Clr Drug Dosing 91.81 mL/min Estimated GFR (MDRD) > 60 (>60) mL/min BUN/Creatinine Ratio 8.8 L (14-18) Glucose 100 (74-106) mg/dL Calcium 9.6 (8.5-10.1) mg/dL Total Bilirubin 0.2 (0.2-1.0) mg/dL AST 13 L (15-37) U/L ALT 27 (14-59) U/L Alkaline Phosphatase 73 (46-116) U/L Total Protein 7.5 (6.4-8.2) g/dl Albumin 4.0 (3.4-5.0) g/dl Globulin 3.5 gm/dL Albumin/Globulin Ratio 1.1 (1-2) Ethyl Alcohol 0.10 (0.00) gm% Meds: Medications Generic Name Dose Route Start Last Admin Trade Name Freq PRN Reason Stop Dose Admin Sodium Chloride 1,000 mls @ 500 mls/hr 06/21/19 10:15 06/21/19 10:33 Normal Saline IV 500 mls/hr ASDIRECTED GENET Administration Discontinued Medications Generic Name Dose Route Start Last Admin Trade Name Freq PRN Reason Stop Dose Admin Hydromorphone HCl 1 mg 06/21/19 10:07 06/21/19 10:13 Dilaudid IVPUSH 06/21/19 10:08 1 mg ONETIME ONE Administration Hydromorphone HCl 0.5 mg 06/21/19 11:56 06/21/19 12:01 Dilaudid IVPUSH 06/21/19 11:57 0.5 mg ONETIME ONE Administration Dextrose/Lactated Ringer's Confirm 06/21/19 12:12 Dextrose 5%-Lactated Ringers Administered 06/21/19 12:13 Dose 1,000 mls @ as directed .ROUTE .STK-MED ONE Lorazepam 1 mg 06/21/19 10:37 06/21/19 10:43 Ativan IVPUSH 06/21/19 10:38 1 mg ONETIME ONE Administration Metoclopramide HCl 7.5 mg 06/21/19 10:07 06/21/19 10:12 Reglan IVPUSH 02/16/20 10:08 7.5 mg ONETIME ONE Administration Midazolam HCl 2 mg 06/21/19 11:18 06/21/19 11:24 Versed 1 Mg/Ml IVPUSH 06/21/19 11:19 Not Given ONETIME ONE Midazolam HCl 2 mg 06/21/19 11:20 06/21/19 11:31 Versed 1 Mg/Ml IVPUSH 06/21/19 11:21 2 mg ONETIME ONE Administration - Radiology Interpretation Free Text/Narrative:: 38-year-old female presents the ED with acute injury to her left lower extremity from a fall on ice early this morning. Peers this occurred around 00 45 hours this morning when she was coming home from the bar. She required to be carried into the house and placed on the couch overnight. She slept very little due to the severe pain in her left lower extremity. She is had a fracture of the distal fibula in April of this year and Dr. Pereira has plated and screwed the distal fibula by notes in the chart April 17. He is very tearful agitated and fearful of any movement of her left lower extremity. His had treadmill 100 g given IV. She is nauseated at this time. Will be given Reglan 7.5 mg IV and Dilaudid 1 mg IV for further pain relief. IV will be normal saline at 500 mils per hour. Routine labs including coags to be obtained. X- rays of the left femur left tib-fib to be done. - Re-Assessments/Exams Free Text/Narrative Re-Assessment/Exam: 06/21/19 10:45 x-rays of the femur on the left side are normal. X-rays of the left tib-fib reveal a spiral fracture of the proximal left fibula and a spiral fracture of the distal tibia. The previous fracture site of the distal fibula with plate and screws is intact. She is having increased pain was given Ativan 1 mg IV for further pain relief and sedation. 06/21/19 11:10: Case discussed with Dr. Maddox installation superintendent orthopedic surgeon at [facility] in [place]. He wishes the patient to stay nothing by mouth and be transferred to the emergency department with plans to take her to the operating room this afternoon. Will place in a Ortho-Glass posterior slab splint to maintain stability of the fracture en route. 06/21/19 12:23 White count is 9.11. Auto differential shows 75.8% neutrophils. Hemoglobin is 12.3 with hematocrit of 36.1. MCV is 90.9. Platelet count 50,000. PT is 10.5 with an INR of 0.96. PTT is 26. Sodium was 145 with potassium of 3.8. Chloride 107 with a bicarbonate 25. Anion gap is 16.8 mildly elevated. BUN is 7 with a creatinine of 0.8.. GFR is greater than 60. Glucose 100 with a calcium of 9.6. Liver function is normal. Total protein is 7.5 with an albumin fraction of 4.0. Current blood alcohol level is 0.10 g percent. Patient was placed in a posterior Ortho-Glass 5 inch splint to maintain and support left lower extremity fractures. She is to travel to the emergency department at [facility] in [place] and remain nothing by mouth for planned surgery later this afternoon. Departure - Departure Time of Disposition: 12:24 Disposition: DC/Tfer to Acute Hospital 02 Condition: Fair Clinical Impression: Fracture, fibula, proximal Qualifiers: Encounter type: initial encounter Fracture type: closed Fracture morphology: other fracture Laterality: left Qualified Code(s): S82.832A - Other fracture of upper and lower end of left fibula, initial encounter for closed fracture Fracture of distal end of left tibia Qualifiers: Encounter type: initial encounter Fracture type: closed Fracture alignment: displaced - Discharge Information *PRESCRIPTION DRUG MONITORING PROGRAM REVIEWED*: Not Applicable *COPY OF PRESCRIPTION DRUG MONITORING REPORT IN PATIENT ALFREDO: Not Applicable Instructions: Tibial Fracture, Adult, Tibial and Fibular Fractures Forms: ED Department Discharge Additional Instructions: Patient transferred to [facility] under the care of Dr. Maddox from bone and joint clinic for definitive orthopedic surgical management. Sepsis Event Note - Evaluation Sepsis Screening Result: No Definite Risk - Focused Exam Vital Signs: Vital Signs Temp Pulse Resp BP Pulse Ox 06/21/19 09:59 37.3 C 132 H 20 119/89 98 Date Exam was Performed: 06/21/19 Time Exam was Performed: 12:20 - My Orders Last 24 Hours: My Active Orders 06/21/19 10:08 EKG Documentation Completion [RC] STAT 06/21/19 10:15 Sodium Chloride 0.9% [Normal Saline] 1,000 ml IV ASDIRECTED - Assessment/Plan Last 24 Hours: My Active Orders 06/21/19 10:08 EKG Documentation Completion [RC] STAT 06/21/19 10:15 Sodium Chloride 0.9% [Normal Saline] 1,000 ml IV ASDIRECTED
[2019-06-21] MEDS ORDERED: Sodium Chloride 0.9% 1,000 ML IV SCH (10:15)
[2019-06-21] MEDS ORDERED: LORazepam 2 MG/ML SDV IVPUSH ONE (10:37)
--- NOTE | 2019-06-21 11:13 | CR ---
Left femur: AP and lateral views left femur were obtained. Comparison: No prior left femur exam. Joint space within the left hip is preserved. Joint space within the left knee also appears preserved. No acute fracture or dislocation is seen. Impression: 1. No abnormality is identified on the left femur exam. Diagnostic code #1 This report was dictated in [place] Standard Time
--- NOTE | 2019-06-21 11:13 | CR ---
Left tibia and fibula: AP and lateral views left tibia and fibula were obtained. Comparison: Previous left tibia and fibula exam of 04/12/19. Plate and screws are noted within the distal fibula fixing old distal fibular fracture. Old healed distal tibial fracture is noted. Acute fracture is noted near the junction of the mid and distal one third diaphysis of the tibia. There is displacement by about one half shaft width. Fracture also noted within the proximal fibular shaft showing mild comminution and less displacement than the tibial fracture. No additional abnormality is appreciated. Impression: 1. Tibial diaphyseal fracture and fibular diaphyseal fractures as noted above. 2. Old distal tibia and fibular fractures. Diagnostic code #3 This report was dictated in [place] Standard Time
[2019-06-21] MEDS ORDERED: Midazolam 1 MG/ML 2 ML SDV IVPUSH ONE ×2 (11:18→11:20)
[2019-06-21] MEDS ORDERED: HYDROmorphone 0.5 MG/0.5 ML Syringe IVPUSH ONE (11:56)
[2019-06-21] MEDS ORDERED: Dextrose 5%-Lactated Ringers 1,000 ML ONE (12:12)
== END 2019-06-21 12:30 ==
LOC: JD.ED 09:55
DX: S82.832A Other fracture of upper and lower end of left fibula, initial encounter for closed fracture (principal); S82.302A Unspecified fracture of lower end of left tibia, initial encounter for closed fracture; Z88.8 Allergy status to other drugs, medicaments and biological substances; W00.0XXA Fall on same level due to ice and snow, initial encounter; Y92.89 Other specified places as the place of occurrence of the external cause
CPT/HCPCS: 29515; 36415; 73552; 73590; 80053; 80307; 85025; 85610; 85730; 93005; 96361; 96374; 96375; 96376; 99285; J1170; J2060; J2765; J7030; 29505; 99284; J2250

== ENCOUNTER 2019-06-24 10:08 | Emergency (ER) | payer BC ==
[2019-06-24] MEDS ORDERED: HYDROmorphone 1 MG/ML Syringe IVPUSH ONE (10:22)
[2019-06-24] MEDS ORDERED: Ondansetron 4 MG/2 ML SDV IVPUSH ONE (10:22)
--- NOTE | 2019-06-24 10:29 | EDM.PDOC ---
ED HPI GENERAL MEDICAL PROBLEM - General Chief Complaint: Lower Extremity Injury/Pain Stated Complaint: [facility] Time Seen by Provider: 06/24/19 10:22 Source of Information: Reports: Patient History Limitations: Reports: No Limitations - History of Present Illness INITIAL COMMENTS - FREE TEXT/NARRATIVE: 38-year-old female sent to the ED per [facility] due to severe left lower extremity pain. I had seen this young lady on June 21 after she had fallen around 1:00 in the morning after a night of heavy drinking. She had slipped and fell on the ice in her driveway near her home. She was carried into the house and placed on the couch overnight and brought into the ED about 8 :00 or 830 that morning. X-rays revealed a fracture of the distal left tibia and proximal left fibula. An x-ray of her femur on the left side did not yield any fractures at that time. Was sent to [facility] for definitive orthopedic surgical repair which was carried out on the same day of injury and she was discharged home late last night. She believes that she had plates and screws placed in her distal tibial fracture. Complaining of severe pain rating all the way up into her left hip and groin. It originates however in the midshaft of the tibia. Likely referred pain but x-rays of the tib-fib femur and pelvis will be obtained to rule out any occult fractures. Essentially I believe she is here for pain management as she was not able to get to the drugstore last night for pain medication due to the late hour of discharge from around 2000 hrs. Paramedics have given her 100 mcg of fentanyl with very minimal relief of the pain. Onset: Other (Constant pain since fall and fracture distal left tibia and proximal left fibula in the wee hours of the morning on June 21. Pain has gotten worse overnight.) Duration: Day(s):, Constant, Getting Worse Location: Reports: Lower Extremity, Left Quality: Reports: Ache, Burning, Same as Previous Episode, Stabbing, Throbbing Severity: Severe Improves with: Reports: None (-10) Worsens with: Reports: None Context: Reports: Trauma (Slipped and fell on the ice in the wee hours of June 21 with a fracture distal left tibia and proximal left fibula. She had open reduction internal fixation I believe of the distal fibular fracture on June 21 in [facility] with . Charged home late last night about 2000 hrs. from 7 days.). 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.) Left Lower Leg Pain Score (Numeric/FACES): 9 - Related Data Allergies Allergy/AdvReac Type Severity Reaction Status Date / Time promethazine [From Phenergan] AdvReac Hallucinati Verified 06/21/19 10:05 ons Home Meds: Home Meds Gabapentin [Neurontin] 100 mg PO TID #30 cap 06/24/19 [Rx] oxyCODONE HCl/Acetaminophen [Percocet 5-325 mg Tablet] 1 - 2 each PO Q4H #30 tablet 06/24/19 [Rx] Past Medical History - Past Health History Medical/Surgical History: Denies Medical/Surgical History 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: - Past Surgical History Female Surgical History: Reports: Hysterectomy, Salpingo-Oophorectomy Musculoskeletal Surgical History: Reports: ORIF Social & Family History - Family History Family Medical History: Noncontributory - Caffeine Use Caffeine Use: Reports: Coffee - Living Situation & Occupation Living situation: Reports: , with Family (3 kids) 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[employer]) Review of Systems - Review of Systems Review Of Systems: See Below Constitutional: Denies: Chills, Diaphoresis, Fever, Weakness, Other Eyes: Reports: No Symptoms Ears: Reports: No Symptoms Nose: Reports: No Symptoms Mouth/Throat: Reports: No Symptoms Respiratory: Reports: No Symptoms Cardiovascular: Reports: No Symptoms GI/Abdominal: Reports: No Symptoms Genitourinary: Reports: No Symptoms Musculoskeletal: Reports: Other (If your pain left lower extremity all the way up to her left groin and hip area.) Neurological: Reports: Other (Hardware pain does not fact to be neurogenic and may be due to irritation of the left common popliteal nerve over the small fibula at the site of her fracture.) Psychiatric: Reports: Anxiety ED EXAM, GENERAL - Physical Exam Exam: See Below Exam Limited By: No Limitations General Appearance: Alert, WD/WN, Moderate Distress, Other (Temperature is 36.8. Heart rate is 105 at the bedside respiratory of 20 with O2 sats of 99% on room air BP 130/88.) Eye Exam: Bilateral Eye: Normal Inspection, PERRL Respiratory/Chest: No Respiratory Distress, Lungs Clear, Normal Breath Sounds, No Accessory Muscle Use Cardiovascular: Normal Peripheral Pulses, Regular Rate, Rhythm, No Murmur, No Rub, Tachycardia Extremities: Other (The left lower extremity is placed in a bulky cast with Ortho-Glass from the metatarsal heads to the tibial tuberosity. Capillary return.) Neurological: Alert, Oriented, CN II-XII Intact, Normal Cognition Psychiatric: Anxious, Other Skin Exam: Warm (Good deal of pain.), Dry, Intact, Normal Color, No Rash Course - Vital Signs Last Recorded V/S: Last Vital Signs Temp 36.9 C 06/24/19 12:03 Pulse 90 06/24/19 12:03 Resp 18 06/24/19 12:03 BP 116/81 06/24/19 12:03 Pulse Ox 94 L 06/24/19 12:03 - Orders/Labs/Meds Meds: Medications Discontinued Medications Generic Name Dose Route Start Last Admin Trade Name Dev PRN Reason Stop Dose Admin Hydromorphone HCl 1 mg 06/24/19 10:22 06/24/19 10:29 Dilaudid IVPUSH 06/24/19 10:23 1 mg ONETIME ONE Administration Ondansetron HCl 4 mg 06/24/19 10:22 06/24/19 10:29 Zofran IVPUSH 06/24/19 10:23 4 mg ONETIME ONE Administration - Radiology Interpretation Free Text/Narrative:: 38-year-old female presents to the ED due to severe pain left lower extremity post fall and fracture distal left tibia and proximal left fibula in the wee hours of the morning of June 21. I had seen her in the ED about 8:00 or 830 that morning and identified the fractures. I did x-ray of the femur at that time which did not show any obvious fractures. She was sent to [facility] where Dr. Maddox from [facility] clinic performed open reduction internal fixation by plate and screw I believe of the distal tibia. Pain is rating up into her left groin and hip area and may be due to referred pain from injury to the common peroneal nerve were crosses over her fibular head at the site of fracture in this area. I will x-ray her pelvis her left femur and her left tib-fib while she is here today. Paramedics have given her fentanyl 100 mcg IV. I will give her Zofran 4 mg IV and Dilaudid 1 mg IV for further pain relief. 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 - Re-Assessments/Exams Free Text/Narrative Re-Assessment/Exam: 06/24/19 10:55 x-rays of the left tib-fib reveal surgical repair with plates and screws on the medial aspect of the distal and mid tibia. Fracture alignment of the proximal fibula is good. X-ray of the left femur and office do not reveal any fractures in this area. Mild effusion in the suprapatellar recess and B and posterior to the femur on the left side. Leave that most of her pain is likely referred from injury to the common peroneal nerve from fracture of the proximal left fibula. 06/24/19 11:18 Discussed findings with the patient and decision made to place her on Percocet 5/325 mg 1 to 2 tablets every 4 hours for pain relief. She was prescribed Nucynta which made her have nausea and vomiting last time and she cannot use this medication. She was also given tramadol which she has found unhelpful in the past. Going to place her on Neurontin 100 mg 3 times daily for 10 days in an effort to relieve some neuralgia I believe coming from the common peroneal nerve injury from the proximal fibular fracture. Advised that this too can cause sedation due to interaction with the Percocet. Following up with Trini montes to current fractures. Departure - Departure Time of Disposition: 11:21 Disposition: Home, Self-Care 01 Condition: Fair Clinical Impression: Encounter for pain management, Fracture of tibia AND fibula Fracture of left tibia and fibula Qualifiers: Encounter type: subsequent encounter Fracture type: closed Fracture healing: with routine healing Qualified Code(s): S82.202D - Unspecified fracture of shaft of left tibia, subsequent encounter for closed fracture with routine healing - Discharge Information *PRESCRIPTION DRUG MONITORING PROGRAM REVIEWED*: Not Applicable *COPY OF PRESCRIPTION DRUG MONITORING REPORT IN PATIENT ALFREDO: Not Applicable Prescriptions: Gabapentin [Neurontin] 100 mg PO TID #30 cap oxyCODONE HCl/Acetaminophen [Percocet 5-325 mg Tablet] 1 - 2 each PO Q4H #30 tablet Instructions: Crutch Use, Adult, [id number], Cast or Splint Care, Adult, Easy -to-Read, Tibial and Fibular Fractures, Opioid Pain Medicine Information, Easy- to-Read Referrals: PCP,Unknown [Primary Care Provider] - Forms: ED Department Discharge Additional Instructions: [facility] in the emergency room today in regards to severe pain left lower extremity post fall with fracture distal left tibia and proximal left fibula. Most of the pain that is rating up towards her left hip is due to irritation of the common peroneal nerve adjacent to your knee due to fracture of the proximal fibula. Rays of the pelvis the left femur and the tib-fib only revealed a fractures of the proximal fibula and distal tibia as previously identified on June 21. Now a plate across the distal tibia to the midshaft of the tibia with screws to maintain its position. Previous hardware lateral left ankle due to a distal fibular fracture in April. The left femur and pelvis x -rays were normal. Treatment with Percocet 5/325 mg strength likely 2 tablets every 4 hours for pain relief. Also suggest use of Neurontin 100 mg every 8 hours for the next 10 days for suspected nerve pain that is coming from the common peroneal nerve near the outer knee and referring the pain up into her left hip area. Both of these medications can interact and cause excessive drowsiness. New nonweightbearing crutch walking. Elevate the left leg as much as possible for at least 3 more days after operation. Follow-up in the clinic with Trini Hardin in 7 to 10 days time as planned. Suggest MiraLAX powder 17 g once daily to prevent constipation from occurring from the opioid pain medication. Sepsis Event Note - Evaluation Sepsis Screening Result: No Definite Risk - Focused Exam Vital Signs: Vital Signs Temp Pulse Resp BP Pulse Ox 06/24/19 12:03 36.9 C 90 18 116/81 94 L 06/24/19 10:14 36.8 C 105 H 20 130/88 99 Date Exam was Performed: 06/24/19 Time Exam was Performed: 21:00
[2019-06-24 12:04] VITALS: BP 116/81; PULSE 90
--- NOTE | 2019-06-24 12:11 | CR ---
Left femur: AP and lateral views of the left femur were obtained. Comparison: No prior femur exam. Fracture within the proximal fibula is seen. Plate and screws are partially visualized within the tibial diaphysis affixing previous fracture. Joint space within the left hip is preserved. No abnormality is seen within the left femur. Impression: 1. Previous tibia and fibular fractures. Plate and screws are partially seen affixing previous tibial fracture. 2. No femur abnormality is appreciated. Diagnostic code #2 This report was dictated in [place] Standard Time
--- NOTE | 2019-06-24 12:11 | CR ---
Left tibia and fibula: AP and lateral views of the left tibia and fibula were obtained. Comparison: Previous left tibia and fibula study of 06/21/19. Plate and screws are noted affixing an old lateral malleolar fracture. Plate and screws are noted affixing previous tibial fracture. Alignment of the tibial fracture is anatomic. Skin carmen are present. Proximal fibular shaft fracture is seen which is stable. Impression: 1. Previous fractures. 2. Nothing acute is otherwise seen. Diagnostic code #2 This report was dictated in [place] Standard Time
--- NOTE | 2019-06-24 12:11 | CR ---
Pelvis: AP view of the pelvis was obtained. Comparison: No prior pelvis exam. Joint space within both hips are maintained. Slight inferior spurring is noted off the left sacroiliac joint. Sacroiliac joints are otherwise unremarkable. No fracture or other bony abnormality is identified. Impression: 1. Mild degenerative change within the inferior left sacroiliac joint. 2. AP pelvis study is otherwise unremarkable. Diagnostic code #2 This report was dictated in [place] Standard Time
== END 2019-06-24 11:49 | disposition home or self-care (01) ==
LOC: JD.ED 10:08
DX: S82.302D Unspecified fracture of lower end of left tibia, subsequent encounter for closed fracture with routine healing (principal); S82.832D Other fracture of upper and lower end of left fibula, subsequent encounter for closed fracture with routine healing; Z88.8 Allergy status to other drugs, medicaments and biological substances; Z01.89 Encounter for other specified special examinations; W01.0XXD Fall on same level from slipping, tripping and stumbling without subsequent striking against object, subsequent encounter
CPT/HCPCS: 72170; 73552; 73590; 96374; 96375; 99284; J1170; J2405; 99283

== ENCOUNTER 2019-06-29 16:45 | Emergency (ER) | payer BC ==
[2019-06-29 17:13] VITALS: BP 144/102; PULSE 90
--- NOTE | 2019-06-29 19:13 | EDM.PDOC ---
ED HPI GENERAL MEDICAL PROBLEM - General Chief Complaint: Lower Extremity Injury/Pain Stated Complaint: NEEDS LEG CHECKED OUT SURG LAST WEEK Time Seen by Provider: 06/29/19 19:00 Source of Information: Reports: Patient, Family (son) History Limitations: Reports: No Limitations - History of Present Illness INITIAL COMMENTS - FREE TEXT/NARRATIVE: A 8-year-old female presents to the ED primarily for pain management. She still having significant pain and fracture sites distal left tibia and proximal left fibula which were fractured on June 21. She underwent open reduction internal fixation with plating and screws of the tibial fracture and the proximal fibular fracture was left to heal on its own. She is no longer having radicular pain up into her left hip as she was after surgery. She feels the swelling is going down in her left upper extremity although the bruising has extended all the way up to her left groin and posterior thigh. Throbbing pain particular at nighttime is disrupting her sleep. She is back to work as of Saturday. Walking with crutches. Onset: Other (Initial injury was June 21) Onset Date: 06/21/19 Duration: Day(s):, Constant, Improving (Only improving) Location: Reports: Lower Extremity, Left (Offered a fracture distal left tibia and proximal left fibula. This is compounded by fracture of the distal left fibula in April of this year with plates and screws) Quality: Reports: Ache, Throbbing Severity: Moderate (8 out of 10 at night.) Improves with: Reports: Rest (Rest and elevation) Worsens with: Reports: Other Context: Reports: Trauma (And fell on the ice to cause initial fractures.). 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, NSAIDS, Other (see below) (No longer using Neurontin.) Left Lower Leg Pain Score (Numeric/FACES): 8 - Related Data Allergies Allergy/AdvReac Type Severity Reaction Status Date / Time promethazine [From Phenergan] AdvReac Hallucinati Verified 06/29/19 17:12 ons Home Meds: Home Meds Aspirin 325 mg PO BID 06/29/19 [History] Cyclobenzaprine [Flexeril] 0 mg PO BEDTIME 06/29/19 [History] Gabapentin [Neurontin] 0 mg PO BEDTIME 06/29/19 [History] Multivitamin [Multi-Vitamin Daily] 1 each PO DAILY 06/29/19 [History] oxyCODONE HCl/Acetaminophen [Percocet 5-325 mg Tablet] 1 - 2 each PO Q4H PRN # 20 tablet 06/29/19 [Rx] Past Medical History - Past Health History Medical/Surgical History: Denies Medical/Surgical History HEENT History: Reports: None Cardiovascular History: Reports: None Respiratory History: Reports: None Gastrointestinal History: Reports: None 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: Musculoskeletal History: Reports: Fracture Neurological History: Reports: None Psychiatric History: Reports: None Endocrine/Metabolic History: Reports: None Hematologic History: Reports: None Immunologic History: Reports: None Oncologic (Cancer) History: Reports: None Dermatologic History: Reports: None - Infectious Disease History Infectious Disease History: Reports: None - Past Surgical History Female Surgical History: Reports: Hysterectomy, Salpingo-Oophorectomy Musculoskeletal Surgical History: Reports: ORIF Social & Family History - Family History Family Medical History: Noncontributory - Tobacco Use Smoking Status *Q: Current Every Day Smoker Years of Tobacco use: 15 Packs/Tins Daily: 0.1 - Caffeine Use Caffeine Use: Reports: Coffee - Recreational Drug Use Recreational Drug Use: No - Living Situation & Occupation Living situation: Reports: , with Family (3 kids) 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) Review of Systems - Review of Systems Review Of Systems: See Below Constitutional: Reports: No Symptoms Eyes: Reports: No Symptoms Ears: Reports: No Symptoms Nose: Reports: No Symptoms Mouth/Throat: Reports: No Symptoms Respiratory: Reports: No Symptoms Cardiovascular: Reports: No Symptoms GI/Abdominal: Reports: Constipation, Decreased Appetite Genitourinary: Reports: No Symptoms Musculoskeletal: Reports: Other (Persistent left lower extremity pain post fractures) Skin: Reports: Bruising (Bruising above and below the knee on the left side.) Neurological: Reports: Paresthesia ED EXAM, GENERAL - Physical Exam Exam: See Below (Paresthesias medial aspect of the left lower extremity) Exam Limited By: No Limitations General Appearance: Alert, WD/WN, No Apparent Distress, Other (Vital signs are normal other than slightly elevated blood pressure at 144 102.) Respiratory/Chest: No Respiratory Distress, Lungs Clear, Normal Breath Sounds Cardiovascular: Normal Peripheral Pulses, Regular Rate, Rhythm, No Edema, No Gallop, No Murmur, No Rub Extremities: Other (Left leg remains in a cast posterior slab splint which is loose. She has good capillary return to all of her toes. They are warm to palpation. Is extensive ecchymosis is present posteriorly over the popliteal fossa and extending up to the posterior thigh. There is no traumatic effusion in the knee at this time.) Neurological: Alert, Oriented, CN II-XII Intact, Normal Cognition Course - Vital Signs Last Recorded V/S: Last Vital Signs Temp 36.6 C 06/29/19 17:07 Pulse 90 06/29/19 17:07 Resp 16 06/29/19 17:07 BP 144/102 H 06/29/19 17:07 Pulse Ox 98 06/29/19 17:07 - Radiology Interpretation Free Text/Narrative:: 38-year-old female presents to the ED primarily for pain management. He had a fracture distal left tibia and proximal left fibula on June 21 after slipping and falling on the ice. She required open reduction internal fixation of the distal tibial fracture in [place] by Dr. Maddox. She ran out of Percocet day before yesterday and is finding the pain unmanageable without it. The particularly bad at nighttime since she returned to work. Constant throbbing pain is disrupting her ability to sleep. On inspection the swelling has gone down immensely. She still has good capillary return to all of her toes. Plan will refill Percocet 5/325 mg tablets x20. 1 to 2 tablets ideally at bedtime to help sleep. She has follow-up appoint with Trini Hardin on Saturday this week. Departure - Departure Time of Disposition: 19:10 Disposition: Home, Self-Care 01 Condition: Fair Clinical Impression: Encounter for pain management, Fracture of tibia, Fracture of fibula - Discharge Information *PRESCRIPTION DRUG MONITORING PROGRAM REVIEWED*: Not Applicable *COPY OF PRESCRIPTION DRUG MONITORING REPORT IN PATIENT ALFREDO: Not Applicable Prescriptions: oxyCODONE HCl/Acetaminophen [Percocet 5-325 mg Tablet] 1 - 2 each PO Q4H PRN # 20 tablet PRN Reason: pain relief. Referrals: Mabel Mendoza MD [Primary Care Provider] - Forms: ED Department Discharge Additional Instructions: Evaluation in the emergency room tonight in regards to persistent pain due to fracture distal left tibia and fracture proximal left fibula 9 days ago. Continued pain is disrupting sleep. Therefore suggest continuing Percocet tablets 5/325 mg tabs 1 or 2 every 4-6 hours as necessary for pain relief particularly nighttime to enable sleep. Follow-up with Trini Hardin later this week for fracture review as planned. May discontinue Neurontin if no further shooting pain up into the left hip is occurring. May use Motrin 600 mg every 6 hours during the day or Aleve 2 tablets every 8 hours during the day as well to prevent sedation. Evading the leg is much as possible still helps reduce some of the pain and swelling. Sepsis Event Note - Evaluation Sepsis Screening Result: No Definite Risk - Focused Exam Vital Signs: Vital Signs Temp Pulse Resp BP Pulse Ox 06/29/19 17:07 36.6 C 90 16 144/102 H 98 Date Exam was Performed: 06/29/19 Time Exam was Performed: 19:13
== END 2019-06-29 19:26 | disposition home or self-care (01) ==
LOC: JD.ED 16:45
DX: S82.302A Unspecified fracture of lower end of left tibia, initial encounter for closed fracture (principal); S82.832A Other fracture of upper and lower end of left fibula, initial encounter for closed fracture; F17.210 Nicotine dependence, cigarettes, uncomplicated; Z88.8 Allergy status to other drugs, medicaments and biological substances; Z79.82 Long term (current) use of aspirin; W00.0XXA Fall on same level due to ice and snow, initial encounter
CPT/HCPCS: 99282; 99283

== ENCOUNTER 2019-11-15 13:27 | Emergency (ER) | payer BC, MEDICAID ==
[2019-11-15 14:27] VITALS: BP 134/92; PULSE 106
--- NOTE | 2019-11-15 15:03 | CR ---
Left ankle: 4 views left ankle were obtained. Comparison: Prior left tibia and fibula study of 06/24/19. Plate and screws are noted within the distal tibia and fibula. Ankle mortise is symmetric. Spur is noted at the attachment of the Achilles to the calcaneus. No acute fracture or other abnormality is appreciated. Impression: 1. Orthopedic hardware. Calcaneal spur. 2. Nothing acute is appreciated on left ankle exam. Diagnostic code #2 Study was dictated in MDT
--- NOTE | 2019-11-15 15:04 | CR ---
Left foot: 4 views left foot were obtained. Comparison: No previous foot study. Osteopenia is seen likely on a disuse basis from previous distal tibia and fibular fracture. Orthopedic hardware is noted. No acute fracture, dislocation or other bony abnormality is appreciated. Impression: 1. Disuse osteopenia. 2. Nothing acute is seen on left foot exam. Diagnostic code #2 Study was dictated in MDT
[2019-11-15] MEDS ORDERED: Ketorolac 60 MG/2 ML SDV IM ONE (15:07)
--- NOTE | 2019-11-15 15:17 | EDM.PDOC ---
ED HPI GENERAL MEDICAL PROBLEM - General Chief Complaint: Lower Extremity Injury/Pain Stated Complaint: LT FOOT INJURY Time Seen by Provider: 11/15/19 14:24 Source of Information: Reports: Patient History Limitations: Reports: No Limitations - History of Present Illness INITIAL COMMENTS - FREE TEXT/NARRATIVE: Patient is a 39-year-old female who presents to the emergency department with left distal foot pain. States that she was playing softball yesterday and while running, she felt a "crack "in her foot. Since that time she has had pain and been unable to walk on it. She states that she thought she had sprained it, however today the pain and swelling has gotten worse. She has not taken any medications for the pain. She does have a history of ORIF of her ankle a number of months back but denies any pain to her ankle. Left Feet Pain Score (Numeric/FACES): 9 - Related Data Allergies Allergy/AdvReac Type Severity Reaction Status Date / Time promethazine [From Phenergan] AdvReac Hallucinati Verified 11/15/19 14:27 ons Home Meds: Home Meds Aspirin 325 mg PO BID 06/29/19 [History] Cyclobenzaprine [Flexeril] 0 mg PO BEDTIME 06/29/19 [History] Gabapentin [Neurontin] 0 mg PO BEDTIME 06/29/19 [History] Multivitamin [Multi-Vitamin Daily] 1 each PO DAILY 06/29/19 [History] oxyCODONE HCl/Acetaminophen [Percocet 5-325 mg Tablet] 1 - 2 each PO Q4H PRN #20 tablet 06/29/19 [Rx] Past Medical History - Past Health History Medical/Surgical History: Denies Medical/Surgical History HEENT History: Reports: None Cardiovascular History: Reports: None Respiratory History: Reports: None Gastrointestinal History: Reports: None ORACLE DBA History: Reports: Musculoskeletal History: Reports: Fracture Neurological History: Reports: None Psychiatric History: Reports: None Endocrine/Metabolic History: Reports: None Hematologic History: Reports: None Immunologic History: Reports: None Oncologic (Cancer) History: Reports: None Dermatologic History: Reports: None - Infectious Disease History Infectious Disease History: Reports: None - Past Surgical History Female Surgical History: Reports: Hysterectomy, Salpingo-Oophorectomy Musculoskeletal Surgical History: Reports: ORIF Social & Family History - Family History Family Medical History: Noncontributory - Tobacco Use Smoking Status *Q: Current Every Day Smoker Years of Tobacco use: 20 Packs/Tins Daily: 0.1 - Caffeine Use Caffeine Use: Reports: None - Recreational Drug Use Recreational Drug Use: No - Living Situation & Occupation Living situation: Reports: , with Family (3 kids) 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 ED EXAM, GENERAL - Physical Exam Exam: See Below Exam Limited By: No Limitations General Appearance: Alert, WD/WN, Mild Distress Respiratory/Chest: No Respiratory Distress, Lungs Clear, Normal Breath Sounds, No Accessory Muscle Use, Chest Non-Tender Cardiovascular: Normal Peripheral Pulses, Regular Rate, Rhythm, No Edema, No Gallop, No JVD, No Murmur, No Rub Extremities: Other (Tenderness to palpation and mild swelling distal portion of the left foot. She is tender both on the dorsal and volar aspects of the extremity. No obvious deformity.) Neurological: Alert, Oriented, CN II-XII Intact, Normal Cognition, Normal Gait, Normal Reflexes, No Motor/Sensory Deficits Psychiatric: Normal Affect, Normal Mood Skin Exam: Warm, Dry, Intact, Normal Color, No Rash Course - Vital Signs Last Recorded V/S: Last Vital Signs Temp 98.6 F 11/15/19 14:24 Pulse 106 H 11/15/19 14:24 Resp 16 11/15/19 14:24 BP 134/92 H 11/15/19 14:24 Pulse Ox 97 11/15/19 14:24 - Orders/Labs/Meds Orders: Active Orders 24 hr Category Date Time Status Acetaminophen/HYDROcodone [Crowheart 325-5 MG] Med 11/15/19 15:46 Once 1 tab PO ONETIME ONE Meds: Medications Discontinued Medications Generic Name Dose Route Start Last Admin Trade Name Freq PRN Reason Stop Dose Admin Ketorolac Tromethamine 60 mg 11/15/19 15:07 11/15/19 15:30 Toradol IM 11/15/19 15:08 60 mg ONETIME ONE Administration - Re-Assessments/Exams Free Text/Narrative Re-Assessment/Exam: 11/15/19 15:15 X-rays were completed of the ankle and foot and showed no evidence of acute fracture. She does have generalized osteopenia however. Discussed with patient that she likely sprained the ligaments of her foot. We will apply Sekou wrap. She has crutches at home. Should get a shot of Toradol in the ER. Recommend ice and elevation and nonweightbearing over the next couple days. She may resume weightbearing as tolerated. Discussed if after 2 weeks she is still having pain, she should follow-up with her orthopedist, Dr. Pereira, for repeat imaging. Discharge instructions as documented. Departure - Departure Time of Disposition: 15:17 Disposition: Home, Self-Care 01 Condition: Good Clinical Impression: Sprain of foot, left Qualifiers: Encounter type: initial encounter Qualified Code(s): S93.602A - Unspecified sprain of left foot, initial encounter - Discharge Information *PRESCRIPTION DRUG MONITORING PROGRAM REVIEWED*: No *COPY OF PRESCRIPTION DRUG MONITORING REPORT IN PATIENT ALFREDO: No Instructions: Foot Sprain Referrals: Mabel Mendoza MD [Primary Care Provider] - Forms: ED Department Discharge Additional Instructions: You were seen in the emergency department today for pain and swelling to the distal part of your left foot. X-rays were completed and showed no fractures. It is likely that you sprained your foot. Sekou wrap has been applied. Wear this for comfort for the next few days. Would recommend nonweightbearing for the next few days to allow the inflammation to subside. You may take [id number] Tylenol or ibuprofen for pain. Not relieved by these medications, short course of Crowheart has been provided. Uses medication only as prescribed. Do not drive or work for 12 hours after taking this as it can be sedating. Elevate and ice the extremity when at rest. Once the pain and swelling starts to improve, you may begin to gradually bear weight on the extremity as tolerated. If you continue to have pain after about 2 weeks, I would recommend that you follow-up with your orthopedist, Dr. Pereira for repeat imaging and further evaluation. Return to the ER as needed. Sepsis Event Note (ED) - Evaluation Sepsis Screening Result: No Definite Risk - Focused Exam Vital Signs: Vital Signs Temp Pulse Resp BP Pulse Ox 11/15/19 14:24 98.6 F 106 H 16 134/92 H 97 - My Orders Last 24 Hours: My Active Orders 11/15/19 15:46 Acetaminophen/HYDROcodone [Crowheart 325-5 MG] 1 tab PO ONETIME ONE - Assessment/Plan Last 24 Hours: My Active Orders 11/15/19 15:46 Acetaminophen/HYDROcodone [Crowheart 325-5 MG] 1 tab PO ONETIME ONE
[2019-11-15] MEDS ORDERED: Acetaminophen/HYDROcodone 325-5 MG Tab PO ONE (15:46)
== END 2019-11-15 15:55 | disposition home or self-care (01) ==
LOC: JD.ED 13:27
DX: S93.602A Unspecified sprain of left foot, initial encounter (principal); F17.210 Nicotine dependence, cigarettes, uncomplicated; Z88.8 Allergy status to other drugs, medicaments and biological substances; Z79.82 Long term (current) use of aspirin; Y93.64 Activity, baseball
CPT/HCPCS: 73610; 73630; 96372; 99283; A9270; J1885

== ENCOUNTER 2020-05-29 03:47 | Emergency (ER) | payer BC ==
[2020-05-29 03:59] VITALS: BP 118/94; PULSE 128
--- NOTE | 2020-05-29 04:08 | EDM.PDOC ---
ED HPI GENERAL MEDICAL PROBLEM - General Chief Complaint: Lower Extremity Injury/Pain Stated Complaint: POSSIBLE BROKEN LEG LEFT Time Seen by Provider: 05/29/20 03:59 Source of Information: Reports: Patient History Limitations: Reports: No Limitations - History of Present Illness INITIAL COMMENTS - FREE TEXT/NARRATIVE: This is a 39-year-old female. She is got a history of fractures of her left lower leg and ankle that were repaired by Dr. Kelli juarez in June 2019. Apparently she got out of bed this morning and stepped down on her left leg and felt a pop in the distal lower leg and now is having severe pain more so on the fibula side then the tibia side. She states she did not do anything unusual she just stepped down on it and felt a pop. She comes to the ER for evaluation. She denies any other acute symptoms. Left Lower Leg Pain Score (Numeric/FACES): 8 - Related Data Allergies Allergy/AdvReac Type Severity Reaction Status Date / Time promethazine [From Phenergan] AdvReac Hallucinati Verified 05/29/20 03:59 ons Home Meds: Home Meds Aspirin 325 mg PO BID 06/29/19 [History] Cyclobenzaprine [Flexeril] 0 mg PO BEDTIME 06/29/19 [History] Gabapentin [Neurontin] 0 mg PO BEDTIME 06/29/19 [History] Multivitamin [Multi-Vitamin Daily] 1 each PO DAILY 06/29/19 [History] oxyCODONE HCl/Acetaminophen [Percocet 5-325 mg Tablet] 1 - 2 each PO Q4H PRN #20 tablet 06/29/19 [Rx] Acetaminophen/oxyCODONE [Percocet 325-5 MG] 1 - 2 each PO Q6H PRN #15 tab 05/07 08/24 [Rx] Past Medical History - Past Health History Medical/Surgical History: Denies Medical/Surgical History HEENT History: Reports: None Cardiovascular History: Reports: None Respiratory History: Reports: None Gastrointestinal History: Reports: None 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: Musculoskeletal History: Reports: Fracture Neurological History: Reports: None Psychiatric History: Reports: None Endocrine/Metabolic History: Reports: None Hematologic History: Reports: None Immunologic History: Reports: None Oncologic (Cancer) History: Reports: None Dermatologic History: Reports: None - Infectious Disease History Infectious Disease History: Reports: None - Past Surgical History Female Surgical History: Reports: Hysterectomy, Salpingo-Oophorectomy Musculoskeletal Surgical History: Reports: ORIF Other Musculoskeletal Surgeries/Procedures:: left lower leg fx -2 plates and 9 scerws Social & Family History - Family History Family Medical History: No Pertinent Family History - Tobacco Use Tobacco Use Status *Q: Current Every Day Tobacco User Years of Tobacco use: 20 Packs/Tins Daily: 0.5 - Caffeine Use Caffeine Use: Reports: None - Recreational Drug Use Recreational Drug Use: No - Living Situation & Occupation Living situation: Reports: , with Family (3 kids) 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) Review of Systems - Review of Systems Review Of Systems: See Below Constitutional: Denies: Chills, Fever Eyes: Reports: No Symptoms Ears: Reports: No Symptoms Nose: Reports: No Symptoms Mouth/Throat: Reports: No Symptoms Respiratory: Reports: No Symptoms Cardiovascular: Reports: No Symptoms GI/Abdominal: Reports: No Symptoms Genitourinary: Reports: No Symptoms Musculoskeletal: Reports: Other (Left lower extremity repair from fracture) Skin: Reports: No Symptoms Neurological: Reports: No Symptoms Psychiatric: Reports: No Symptoms ED EXAM, GENERAL - Physical Exam Exam: See Below Exam Limited By: No Limitations General Appearance: Alert, WD/WN, No Apparent Distress Eye Exam: Bilateral Eye: Normal Inspection Ears: Normal External Exam Nose: Normal Inspection Throat/Mouth: Normal Inspection, Normal Lips, Normal Voice, No Airway Compromise Head: Normocephalic Neck: Supple Respiratory/Chest: No Respiratory Distress Back Exam: Full Range of Motion Extremities: Other (Lungs surgical scar down the medial side of her left lower leg. On the distal fibula areas where she seems to be mostly tender and there is some some mild swelling noted. It is very tender on palpation, she will not move her ankle due to the pain.). No: Pedal Edema Neurological: Alert, Oriented Psychiatric: Normal Affect, Normal Mood Skin Exam: Warm, Dry ED TRAUMA EXTREMITY PROCEDURES - Splinting Left Lower Extremity Splint Site: left lower leg Pre-Procedure NV Status: Normal Post-Procedure NV Status: Normal Splint Material: Fiberglass Splint Design: Posterior Applied & Form Fitted By: Provider Provider Post-Splint Application NV Check: NV Status Normal Complications: No Progress/Comments: Short posterior lower leg splint was placed with good position, padding was placed in the splint and then Sekou wraps this was done by the provider. Course - Vital Signs Last Recorded V/S: Last Vital Signs Temp 97.8 F 05/29/20 03:56 Pulse 128 H 05/29/20 03:56 Resp 16 05/29/20 03:56 BP 118/94 H 05/29/20 03:56 Pulse Ox 96 05/29/20 03:56 - Orders/Labs/Meds Orders: Active Orders 24 hr Category Date Time Status Tibia Fibula Lt [CR] Stat Exams 05/29/20 03:55 Taken Meds: Medications Discontinued Medications Generic Name Dose Route Start Last Admin Trade Name Freq PRN Reason Stop Dose Admin Oxycodone/Acetaminophen 2 tab 05/29/20 04:44 05/29/20 04:57 Percocet 325-5 Mg PO 05/29/20 04:45 2 tab ONETIME ONE Administration - Re-Assessments/Exams Free Text/Narrative Re-Assessment/Exam: 05/29/20 06:53 Wedges will be dispensed with the patient by the provider since she is nonweightbearing on the fracture of that tibia and the left lower leg is in a posterior splint. I will provide something for pain. She is to follow-up with Dr. Pereira this week. Departure - Departure Time of Disposition: 06:55 Disposition: Home, Self-Care 01 Condition: Good Clinical Impression: Fracture of tibial shaft, left, closed Qualifiers: Encounter type: initial encounter Fracture morphology: oblique Fracture alignment: nondisplaced Qualified Code(s): S82.235A - Nondisplaced oblique fracture of shaft of left tibia, initial encounter for closed fracture - Discharge Information *PRESCRIPTION DRUG MONITORING PROGRAM REVIEWED*: Not Applicable *COPY OF PRESCRIPTION DRUG MONITORING REPORT IN PATIENT ALFREDO: Not Applicable Prescriptions: Acetaminophen/oxyCODONE [Percocet 325-5 MG] 1 - 2 each PO Q6H PRN #15 tab PRN Reason: Pain Instructions: Tibial Fracture, Adult, Crutch Use, Adult, [id number] Referrals: Mabel Mendoza MD [Primary Care Provider] - Elijah Pereira MD [Physician] - Forms: ED Department Discharge, ED Return to Work/School Form Additional Instructions: Take the Percocet as needed for pain, keep the leg elevated is much as possible and ice it down when you get home, no weightbearing on that left leg, use the crutches whenever you are up and moving around, follow-up with Dr. Pereira by calling his office on Saturday to get an appointment to be seen, return to the ER Sepsis Event Note (ED) - Evaluation Sepsis Screening Result: No Definite Risk - Focused Exam Vital Signs: Vital Signs Temp Pulse Resp BP Pulse Ox 05/29/20 03:56 97.8 F 128 H 16 118/94 H 96 - My Orders Last 24 Hours: My Active Orders 05/29/20 03:55 Tibia Fibula Lt [CR] Stat - Assessment/Plan Last 24 Hours: My Active Orders 05/29/20 03:55 Tibia Fibula Lt [CR] Stat
[2020-05-29] MEDS ORDERED: Acetaminophen/oxyCODONE 325-5 MG Tab PO ONE (04:44)
--- NOTE | 2020-05-29 11:08 | CR ---
Left tibia and fibula: AP and lateral views of the left tibia and fibula were obtained. Comparison: Previous tibia and fibula study of 06/24/19. Plate and screws are identified within the mid and distal tibial diaphysis and the distal fibular diaphysis. Findings are similar to previous exam. Previous fractures are noted. Proximal femur fracture is also present but not as well-seen as on previous exam. No acute abnormality is appreciated. Impression: 1. Previous bone surgery. 2. Nothing acute is definitely appreciated. Diagnostic code #2
== END 2020-05-29 07:29 | disposition home or self-care (01) ==
LOC: JD.ED 03:47
DX: S82.235A Nondisplaced oblique fracture of shaft of left tibia, initial encounter for closed fracture (principal); Z88.8 Allergy status to other drugs, medicaments and biological substances; Z79.82 Long term (current) use of aspirin; Z79.899 Other long term (current) drug therapy; Z72.0 Tobacco use; X58.XXXA Exposure to other specified factors, initial encounter
CPT/HCPCS: 29515; 73590; 99283; A9270

== ENCOUNTER 2021-07-24 17:48 | Emergency (ER) | payer BC ==
[2021-07-24 18:01] VITALS: BP 146/96; PULSE 97
== END 2021-07-24 20:42 | disposition home or self-care (01) ==
LOC: JD.ED 17:48
DX: S06.0X0A Concussion without loss of consciousness, initial encounter (principal); Z88.8 Allergy status to other drugs, medicaments and biological substances; Z79.82 Long term (current) use of aspirin; Z72.0 Tobacco use; W00.0XXA Fall on same level due to ice and snow, initial encounter
CPT/HCPCS: 70450; 70450-26; 99283-25; 99284

== ENCOUNTER 2022-06-21 15:17 | Emergency (ER) | payer BC ==
[2022-06-21] MEDS ORDERED: HYDROmorphone 1 MG/ML Syringe IM ONE (16:49)
[2022-06-21 20:06] VITALS: BP 122/97; PULSE 90
== END 2022-06-21 20:06 | disposition home or self-care (01) ==
LOC: JD.ED 15:17
DX: M79.605 Pain in left leg (principal); R60.0 Localized edema; F17.210 Nicotine dependence, cigarettes, uncomplicated; Z88.8 Allergy status to other drugs, medicaments and biological substances
CPT/HCPCS: 73590-26-LT; 73590-LT; 93971-26-LT; 93971-LT; 96372; 99282; 99284; J1170

== ENCOUNTER 2022-09-04 15:16 | Emergency (ER) | payer BC ==
[2022-09-04 15:36] VITALS: BP 136/88; PULSE 97
[2022-09-04 17:22] LABS: CORONAVIRUS COVID-19 NAA NEGATIVE (NEGATIVE)
== END 2022-09-04 18:12 | disposition home or self-care (01) ==
LOC: JD.ED 15:16
DX: M54.6 Pain in thoracic spine (principal); Z88.8 Allergy status to other drugs, medicaments and biological substances; Z20.822 Contact with and (suspected) exposure to COVID-19
CPT/HCPCS: 0241U; 36415; 71046; 80053; 85025; 85379; 99283; 99284

== ENCOUNTER 2022-09-05 13:39 | Emergency (ER) | payer BC ==
[2022-09-05 14:00] VITALS: BP 155/96; PULSE 89
[2022-09-05] MEDS ORDERED: HYDROmorphone 0.5 MG/0.5 ML Syringe IVPUSH ONE (14:16)
[2022-09-05] MEDS ORDERED: Ondansetron 4 MG/2 ML SDV IVPUSH ONE (14:16)
[2022-09-05] MEDS ORDERED: Iopamidol 612 MG/ML 100 ML Bottle IVPUSH ONE (14:39)
[2022-09-05] MEDS ORDERED: Sodium Chloride 0.9% 10 ML Syringe FLUSH PRN (14:39)
[2022-09-05] MEDS ORDERED: Ketorolac 30 MG/ML SDV IVPUSH ONE (15:41)
[2022-09-05] MEDS ORDERED: Orphenadrine 100 MG Tab.ER PO ONE (15:41)
== END 2022-09-05 17:20 | disposition home or self-care (01) ==
LOC: JD.ED 13:39
DX: R10.12 Left upper quadrant pain (principal); Z88.8 Allergy status to other drugs, medicaments and biological substances; Z90.710 Acquired absence of both cervix and uterus
CPT/HCPCS: 36415; 74177; 80053; 81001; 83690; 85025; 86140; 96374; 96375; 99284; A9270; J1170; J1885; J2405; J3490; Q9967

== ENCOUNTER 2023-02-21 17:43 | Emergency (ER) | payer BC ==
[2023-02-21 18:00] VITALS: BP 160/104; PULSE 93
[2023-02-21] MEDS ORDERED: HYDROmorphone 0.5 MG/0.5 ML Syringe IM ONE ×2 (18:26→21:44)
[2023-02-21] MEDS ORDERED: Ketorolac 30 MG/ML SDV IM ONE (21:44)
== END 2023-02-21 22:00 | disposition home or self-care (01) ==
LOC: JD.ED 17:43
DX: R60.0 Localized edema (principal); M79.605 Pain in left leg; F17.210 Nicotine dependence, cigarettes, uncomplicated; Z88.8 Allergy status to other drugs, medicaments and biological substances
CPT/HCPCS: 73610; 73700; 93971; 96372; 99284; J1170; J1885

== ENCOUNTER 2024-06-05 10:43 | Emergency (ER) | payer BC, OTHER ==
[2024-06-05] MEDS: Levalbuterol HCl 1.25 MG/3 ML Neb NEB ONE (11:09)
[2024-06-05] MEDS: Sodium Chloride 0.9% 10 ML Syringe FLUSH PRN (11:10)
[2024-06-05] MEDS: Sodium Chloride 0.9% 1,000 ML IV SCH (11:10)
[2024-06-05 11:33] LABS: BASOPHILS PERCENT AUTO 0.5 % (0.0-1.0); EOSINOPHILS ABSOLUTE AUTO 0.1 K/mm3 (0.0-0.4); EOSINOPHILS PERCENT AUTO 2.3 % (0.0-6.0); HEMATOCRIT 43.3 % (37.0-47.0); HEMOGLOBIN 14.9 gm/dl (12.0-16.0); IMMATURE GRAN ABSOLUTE AUTO 0.01 K/mm3 (0.00-0.05); IMMATURE GRAN PERCENT AUTO 0.2 % (0.0-0.4); LYMPHOCYTES ABSOLUTE AUTO 1.8 K/mm3 (1.0-4.8); LYMPHOCYTES PERCENT AUTO 28.9 % (24.0-44.0); MEAN CORPUSCULAR HEMOGLOBIN 30.7 pg (28.0-32.0); MEAN CORPUSCULAR HGB CONC 34.4 g/dl (32.0-36.0); MEAN CORPUSCULAR VOLUME 89.3 fl (83.0-99.0); MEAN PLATELET VOLUME 11.5 fl (9.4-12.3); MONOCYTES ABSOLUTE AUTO 0.6 K/mm3 (0.0-0.8); NEUTROPHILS ABSOLUTE AUTO 3.6 K/mm3 (1.8-7.7); NEUTROPHILS PERCENT AUTO 58.1 % (41.0-71.0); PLATELET COUNT,PLT 247 K/mm3 (150-400); RED BLOOD CELL COUNT 4.85 M/mm3 (4.10-5.30)
[2024-06-05 11:36] LABS: INR 1.01; PROTHROMBIN TIME 10.7 SECONDS (9.7-12.0)
[2024-06-05 11:38] LABS: PTT,PARTIAL THROMBOPLSTIN TIME 29.9 SECONDS (21.7-31.4)
[2024-06-05 11:46] LABS: A/G RATIO 0.9 (1-2); ALANINE AMINOTRANSFERASE,ALT 64 U/L (14-59); ALBUMIN 4.2 g/dl (3.4-5.0); ALKALINE PHOSPHATASE 76 U/L (46-116); ANION GAP 14.9 (5-15); ASPARTATE AMNIOTRANSFERASE,AST 48 U/L (15-37); BILIRUBIN TOTAL 0.6 mg/dL (0.2-1.0); BLOOD UREA NITROGEN,BUN 16 mg/dL (7-18); BUN/CREATININE RATIO 13.3 (14-18); C-REACTIVE PROTEIN 3.18 mg/dL (<0.30); CARBON DIOXIDE,CO2 25 mEq/L (21-32); CHLORIDE,CL 99 mEq/L (98-107); CREATININE 1.2 mg/dL (0.55-1.02); ESTIMATED GFR 57 mL/min (>60); GLUCOSE RANDOM 113 mg/dL (70-99); MAGNESIUM 2.1 mg/dL (1.8-2.4); POTASSIUM,K 3.9 mEq/L (3.5-5.1); PROTEIN TOTAL,TP 8.9 g/dl (6.4-8.2); SODIUM,NA 135 mEq/L (136-145); TROPONIN I HIGH SENSITIVITY 4 pg/mL (<=51); TSH 21.603 uIU/mL (0.358-3.74)
[2024-06-05 11:50] LABS: LACTIC ACID 1.5 mmol/L (0.4-2.0)
[2024-06-05 12:34] LABS: T4 FREE 0.93 ng/dL (0.76-1.46)
[2024-06-05] MEDS: Sodium Chloride 0.9% 1,000 ML IV ONE (13:47)
[2024-06-05] MEDS: Benzonatate 100 MG Cap PO ONE (13:49)
[2024-06-05] MEDS: Levalbuterol HCl 1.25 MG/0.5 ML Neb NEB ONE (15:08)
[2024-06-05 16:33] VITALS: BP 136/95; PULSE 85
== END 2024-06-05 15:00 | disposition home or self-care (01) ==
LOC: JD.ED 10:43
DX: J10.1 Influenza due to other identified influenza virus with other respiratory manifestations (principal); Z88.8 Allergy status to other drugs, medicaments and biological substances; Z79.899 Other long term (current) drug therapy; Z90.710 Acquired absence of both cervix and uterus
CPT/HCPCS: 36415; 71045; 80053; 83605; 83735; 83880; 84439; 84443; 84484; 85025; 85610; 85730; 86140; 87040; 87428; 93005; 94640; 96360; 96361; 99285; A9270; J7030; J7612; 93010; 99284